=== PATIENT | female | born 1975 | race Two or more races ===

== ENCOUNTER 2020-03-23 14:53 | Emergency (ER) | payer OTHER, SELFPAY ==
--- NOTE | 2020-03-23 15:26 | US_ITS ---
EXAMINATION: US VENOUS ULTRASOUND WITH DOPPLER LOWER EXTREMITY, LEFT CLINICAL INFORMATION: Left calf pain. Recent long travel. Assess for occult DVT. COMPARISON: None TECHNIQUE: Ultrasound of the deep veins is performed from the hip to the calf with compression sonography and color and pulse Doppler assessment. Spectral analysis with color-flow imaging is performed. FINDINGS: There is normal venous compression and respiratory variation and augmented flow. The visualized common femoral vein, superficial femoral vein, profunda femoral vein, popliteal vein, and the trifurcation region shows no evidence of deep venous thrombosis. There is no popliteal fossa cyst demonstrated. IMPRESSION: No DVT demonstrated in the left lower extremity.
[2020-03-23 15:27] VITALS: BP 158/79; PULSE 84; RESP 16; TEMP 37.1; O2SAT 99; BMI 41.8
--- NOTE | 2020-03-23 15:38 | ED_ITS ---
HPI - Extremity Problem General Chief complaint: Extremity Injury, Lower Stated complaint: DVT? Time Seen by Provider: 03/23/20 15:26 Source: patient Mode of arrival: ambulatory Limitations: no limitations History of Present Illness HPI Narrative: Patient presents to ED for left calf pain describes as muscle cramp and spasm that has been occurring for 3 weeks. Patient denies pain as cramping. Patient had recent 3 hour flight before left calf pain began. Patient denies any chest pain, shortness of breath, dizziness, weakness, or coughing up blood. Patient denies working out, long running, recent trauma, or over use. MD Complaint: extremity pain Onset (ago): week(s) (3 weeks) Location: left and lower extremity Related Data Previous Rx's Medication Instructions Recorded cyclobenzaprine 10 mg PO TID PRN #15 tab 03/23/20 naproxen 500 mg PO BID PRN #20 tab 03/23/20 Allergies Allergy/AdvReac Type Severity Reaction Status Date / Time No Known Allergies Allergy Verified 03/23/20 15:31 Review of Systems Review of Systems: Yes all other systems are reviewed and are negative Constitutional: Constitutional: Reports as per HPI and Reports no additional constitutional complaints Eyes: Eyes: Reports as per HPI and Reports no additional eye complaints ENT: Reports system reviewed and no additional complaints, except as documented and Reports as per HPI Cardiovascular: Cardiovascular: Reports as per HPI and Reports no additional cardiovascular complaints Respiratory: Respiratory: Reports as per HPI and Reports no additional respiratory complaints Gastrointestinal: Gastrointestinal: Reports as per HPI and Reports no additional gastrointestinal complaints Musculoskeletal: Musculoskeletal: Reports no additional musculoskeletal complaints and Reports as per HPI Comments: Left calf pain Neurologic: Reports system reviewed and no additional complaints, except as documented and Reports as per HPI Psychiatric: Psychiatric: Reports no additional psychiatric complaints and Reports as per HPI PMF Past Medical History Medical History (Updated 03/23/20 @ 17:17 by MARCOS Mcgarry) Carpal tunnel syndrome Surgical History (Updated 03/23/20 @ 15:30 by Kerry Chan) H/O eye surgery Social History Social History Advance Directives: No Advance Directives Information Provided: No Physical Exam Vital Signs: Vital Signs: Vital Signs Temp Pulse Resp BP Pulse Ox 03/23/20 15:27 98.7 F 84 16 158/79 H 99 Body Mass Index 41.8 Const: General: cooperative, healthy appearing, comfortable, no acute dis tress, well developed, alert and awake Orientation/consciousness: oriented to person, oriented to place, oriented to time and patient oriented x3 HENMT: Head: Yes normal to inspection and Yes No palpable skull fracture present Eyes: General: appearance normal, both eyes and all related structures Neck: Neck: Yes normal visual inspection, Yes full ROM, Yes no lymphadenopathy and Yes no meningeal signs Chest: Chest palpation & inspection: normal inspection of the chest and normal palpation of entire chest wall Resp: Effort & Inspection: normal respiratory effort, able to speak in complete sentences, normal respiratory pattern, no audible wheezes, no cough, no grunting, no nasal flaring, no paradoxical thoraco-abdom movements and no pursed lip breathing Auscultation: clear to auscultation bilaterally, no crackles, no rales, no rhonchi, no wheezes and breath sounds present Cardio: Jugular venous distension: no JVD Heart sounds: S1 normal heart sound present and S2 normal heart sound present GI: Inspection: Yes normal to inspection and No abdominal wall ecchymosis : General: No CVA tenderness and Yes no CVA tenderness Back/Spine/Pelvis: Back: no CVA tenderness, No CVA tenderness and No back tenderness Skin: General skin exam: no rashes or lesions noted Neuro: General: oriented to person, oriented to place, oriented to time, patient oriented x3, gait normal, no meningeal signs and CN's II-XI intact bilaterally Cranial nerves: Yes CN's II-XII intact bilaterally Extrem: Other: left lower extremity negative for any swelling or redness. Positive for calf tenderness on palpation. Pulses are intact in left lower extrmity. leg has normal color. negative for skin tightness or bluish discoloration of toes. General: Yes normal to inspection, Yes full ROM and Yes capillary refill normal Psych: Appearance: grossly normal and well kempt Course Course Course Narrative: Patient will be sent for left leg ultrasound to rule out DVT. no indication for xray of leg. negative for any ecchymosis, deformities, or antrerior bone tenderness. Patient denies any recnent trauma to leg Reevaluation(s) Reevaluation #1: Patient's ultrasound came back negative for blood clot. Patient is comfortable in bed playing on cell phone. Once again history physical exam does not indicate cellulitis, blood clot, or arterial occlusion. Also history physical exam does not indicate rhabdomylosis. Patient did not overuse her leg. Denies long running, denies exercising, and denies overuse of extremity. Also pain is not out of proportion. No need for x-ray. Negative any bone tenderness. Time: 17:14 MDM - Extremity (Nontraumatic) MDM Narrative Medical decision making narrative: Leg muscular pain. Negative for DVT Discharge Plan Discharge Clinical Impression: Leg pain Patient Disposition: Home, Self-Care Instructions: Muscle Spasm (ED), Leg Pain (ED) Additional Instructions: return to the ED for any swelling of extremity, redness, development of red streaks, bluish discoloration of toes, chest pain, shortness of breath, worsening calf pain, severe cramping, numbness,/tingling, or any other concerning symptoms. Please follow-up with the PCP Prescriptions: New naproxen 500 mg tablet 500 mg PO BID PRN (Reason: pain) Qty: 20 RF: 0 cyclobenzaprine 10 mg tablet 10 mg PO TID PRN (Reason: muscle spasm) Qty: 15 RF: 0 Interventions: ED Discharge Assessment Last Done: 03/23/20 17:45 Discharge Date/Time: 03/23/20 17:40 Print Language: [place] Citizen
== END 2020-03-23 17:40 | disposition home or self-care (01) ==
PROVIDERS: Emergency Provider Emergency Medicine
DX: M79.605 Pain in left leg (principal); R60.0 Localized edema; Z79.899 Other long term (current) drug therapy
CPT/HCPCS: 93971; 99283; 99284

== ENCOUNTER → 2022-10-10 08:10 | Outpatient (BNVA) | payer OTHER, SELFPAY | PROVIDERS: PCP Internal Medicine; Referring Provider Internal Medicine; Visit Provider Physician Assistant Surgical ==

== ENCOUNTER → 2022-10-12 08:00 | Outpatient (BNVA) | payer OTHER, SELFPAY | PROVIDERS: PCP Internal Medicine; Visit Provider Surgery ==

== ENCOUNTER 2022-10-18 08:08 | Outpatient (REF) | payer OTHER, SELFPAY ==
[2022-10-18 09:05] LABS: MANUAL DIFF FLAG NO
[2022-10-18 09:15] LABS: Basophils Percent Auto 0.8 % (0-2); Eosinophils Absolute Auto 0.2 X10*3/uL (0.0-0.4); Eosinophils Percent Auto 3.2 % (0-4); Hematocrit 38.9 % (37.0-47.0); Hemoglobin 12.3 g/dl (12.0-16.0); Imm Gran Abs Auto 0.01 X10*3/uL (0.00-0.03); Imm Gran Pct Auto 0.2 % (0.0-0.4); Lymphocytes Absolute Auto 1.7 X10*3/uL (1.2-4.9); Lymphocytes Percent Auto 32.1 % (20-40); Mean Corpuscular HGB Conc 31.6 g/dl (31.0-35.0); Mean Corpuscular Hemoglobin 26.2 pg (27.0-33.0); Mean Corpuscular Volume 82.8 fL (80.0-98.0); Mean Platelet Volume 10.4 fL (9.4-12.3); Monocytes Absolute Auto 0.4 X10*3/uL (0.1-1.2); Monocytes Percent Auto 8.1 % (2-11); Neutrophils Percent Auto 55.6 % (45-73); Platelet Count 293 X10*3/uL (160-400); Red Cell Distribution Width 13.5 % (11.0-16.0); White Blood Count 5.3 X10*3/uL (4.8-10.8)
[2022-10-18 09:38] LABS: Estimated Average Glucose 108 mg/dL; Hemoglobin A1c % 5.4 %
[2022-10-18 10:00] LABS: Alanine Aminotransferase 20 U/L (0-31); Albumin Level 3.9 g/dL (3.5-5.0); Alkaline Phosphatase 85 U/L (39-117); Anion Gap 11 (12-20); Aspartate Amino Transferase 20 U/L (5-31); Bilirubin Total 0.4 mg/dL (0.0-1.0); Blood Urea Nitrogen 9 mg/dL (9-16); C Reactive Protein 0.72 mg/dL (< or = 0.50); Calcium 9.5 mg/dL (8.4-10.2); Carbon Dioxide 28 mmol/L (22-29); Chloride 106 mmol/L (96-108); Cholesterol 199 mg/dL; Estimated Glomerular Filt Rate > 60; Glucose Random 94 mg/dL (60-115); HDL Cholesterol 37 mg/dL; Iron 50 mcg/dL (30-160); LDL Cholesterol Calculated 140 mg/dl; Percent Iron Saturation 18 % (15-50); Potassium 4.5 mmol/L (3.3-5.1); Sodium 140 mmol/L (135-145); Total Iron Binding Capacity 280 mcg/dL (228-428); Total Protein 6.9 g/dL (6.5-8.0); Triglycerides 110 mg/dL; Unsaturated Iron Binding 230 ug/dL
[2022-10-18 10:24] LABS: Ferritin 116 ng/mL (10-250); Folate 16.9 ng/mL (> or = 4.0); Insulin 14 uU/mL (2-29); TSH reflex Free T4 0.63 uIU/mL (0.32-4.0); Vitamin B12 353 pg/mL (200-900); Vitamin D 25-OH Total 29.4 ng/mL (>30)
[2022-10-19 13:14] LABS: Calcium (PTHI) 9.3 mg/dL (8.6-10.2); PTHI 59 pg/mL (16-77)
[2022-10-20 14:53] LABS: H Pylori Breath Test Positive (Negative)
[2022-10-22 17:33] LABS: Zinc 89 mcg/dL (60-130)
[2022-10-23 12:43] LABS: Vitamin B1 13 nmol/L (8-30)
[2022-10-25 03:53] LABS: Vitamin A 35 mcg/dL (38-98)
== END 2022-10-18 08:09 | disposition home or self-care (01) ==
LOC: HO.LAB 08:08
PROVIDERS: PCP Internal Medicine; Visit Provider Surgery
DX: E66.01 Morbid (severe) obesity due to excess calories (principal); K21.9 Gastro-esophageal reflux disease without esophagitis; I10 Essential (primary) hypertension; J45.909 Unspecified asthma, uncomplicated
CPT/HCPCS: 36415; 80053; 80061; 82306; 82607; 82728; 82746; 83013; 83036; 83525; 83540; 83970; 84425; 84443; 84590; 84630; 85025; 86140

== ENCOUNTER 2022-10-20 07:38 | Outpatient (REF) | payer OTHER, SELFPAY ==
--- NOTE | ~2022-10-20 | XR_ITS ---
EXAMINATION: XR CHEST CLINICAL INFORMATION: Obesity COMPARISON: None available. TECHNIQUE: 2 views of the chest were obtained. FINDINGS: No significant abnormality is noted involving the heart, lungs, mediastinum, bony thorax or soft tissues. XR/XR chest 2V IMPRESSION: Unremarkable examination.
--- NOTE | 2022-10-20 08:15 | ECG_ITS ---
Test Reason : e66.1 Blood Pressure : / mmHG Vent. Rate : 069 BPM Atrial Rate : 069 BPM P-R Int : 140 ms QRS Dur : 086 ms QT Int : 408 ms P-R-T Axes : 046 052 048 degrees QTc Int : 437 ms Normal sinus rhythm Normal ECG No previous ECGs available Referred By: Gaston Cooper Electronically Signed By:Silverio Brooks
== END 2022-10-20 07:39 | disposition home or self-care (01) ==
LOC: HO.XRAY 07:38
PROVIDERS: Visit Provider Surgery
DX: E66.01 Morbid (severe) obesity due to excess calories (principal); I10 Essential (primary) hypertension; J45.909 Unspecified asthma, uncomplicated; K21.9 Gastro-esophageal reflux disease without esophagitis
CPT/HCPCS: 71046; 93005

== ENCOUNTER → 2022-11-07 07:59 | Outpatient (BNVA) | payer OTHER, SELFPAY | PROVIDERS: PCP Internal Medicine; Visit Provider Surgery ==

== ENCOUNTER → 2022-11-21 10:58 | Outpatient (BNVA) | payer OTHER, SELFPAY | PROVIDERS: PCP Internal Medicine; Visit Provider Physician Assistant Surgical ==

== ENCOUNTER 2022-11-21 17:43 | Outpatient (REF) | payer OTHER, SELFPAY ==
[2022-11-22 13:06] LABS: H Pylori Breath Test Negative (Negative)
== END 2022-11-21 17:44 | disposition home or self-care (01) ==
LOC: HO.LNP 17:43
PROVIDERS: Visit Provider Physician Assistant Surgical
DX: Z12.2 Encounter for screening for malignant neoplasm of respiratory organs (principal)
CPT/HCPCS: 83013

== ENCOUNTER → 2022-11-22 09:18 | Outpatient (BNVA) | payer OTHER, SELFPAY | PROVIDERS: PCP Internal Medicine; Visit Provider Dietitian, Registered | DX: E66.01 Morbid (severe) obesity due to excess calories (principal) | CPT/HCPCS: 97802 ==

== ENCOUNTER 2022-12-16 10:04 | Outpatient (AMB) | payer OTHER, SELFPAY ==
--- NOTE | 2022-12-16 09:31 | MHC.OFFVISWM ---
Intake VS Expanded 12/16/22 09:33 Height 5 ft 3 in Weight 215 lb 3.2 oz BMI 38.1 Intake Visit Reasons: VIDEO F/U [facility] Yardage Control Operator Required: No Allergies No Known Allergies Allergy (Verified 10/12/22 09:11) Medication List - Last Reconciled 12/16/22 by MARCOS De albuterol sulfate 90 mcg/actuation 2 puffs inhalation Q6H PRN hydrochlorothiazide 12.5 mg PO DAILY mecobalamin (vitamin B12) 500 mcg orally one per day; omeprazole 20 mg PO DAILY vitamin A palmitate 10,000 units orally one per day; HPI HPI Comments History of Present Illness Details 47 yo female returns for [facility] clinic Initial weight on 10/12/22 was 232.8 with a BMI of 41.2 Weight today 215.2 with a BMI of 38.1 weight loss 17.6 TBWL% 7.5 She states she is doing two shakes, 2 bars and a meal. The shakes and bars are throughout the day. Each shake is 1/2 scoop, 2 ZP bars per day and meal 8 forks/4 veg/4 rice or pasta Meal plan: 2 Isopure INFUSIONS protein shakes (HALF scoop EACH in 8oz cold water) 2 ZP protein bars and meal with 8 forks protein and 4 forks veg, 4 forks carbs. Not following a specific schedule but drinkg and eating slowly throughout the day Exercise plan: 30 min treadmill, speed 3 incline 2-12, goal 300 calories, 6-7 days per week walking dog daily [facility] Medical History Asthma Carpal tunnel syndrome GERD (gastroesophageal reflux disease) Hypertension Morbid obesity Surgical History H/O eye surgery Hx of carpal tunnel repair Hx of tubal ligation Family History Father Hypertension FH: prostate cancer Mother Hypertension Breast cancer Raynaud disease Amputee, below knee Sister Hypertension Social History Alcohol intake: current Alcohol intake frequency: holidays/special occasions only Patient Tobacco Use Status: Never used Tobacco Physical Exam Vital Signs: BMI result Body Mass Index 38.1 Assessment & Plan Assessment & Plan (1) Obesity (BMI 30-39.9): Code(s): E66.9 - Obesity, unspecified Plan: change meal plan to 2 isopure shakes 1/2 scoop each 1.5 ZP bars Meal 8 forks protein/8 forks veg, remove carbs Encouraged to continue exercise and try to push to incline of 13 and then 14 as she is able. Strive for more than 300 nataly if possible. Reminded of upcoming appts (2) H. pylori infection: Code(s): A04.8 - Other specified bacterial intestinal infections Plan: re-teat after treatment 11/21/22-neg Telehealth Telehealth Location of provider rendering services: practice address Location of patient: address on file Patient Identification confirmed using: Name, : Yes Telehealth method: video Patient verbally consented to treatment: Yes Patient verbally consented to billing insurance company: Yes Patient informed of any privacy concerns related to visit: Yes Minutes spent on Phone/Video with Pt.: 20 Coding Level of Care Code Tele Est Pt Level 3 (35256) Diagnoses Obesity (BMI 30-39.9) E66.9 H. pylori infection A04.8 Time Spent (min) 20
[2022-12-16 09:33] VITALS: BMI 38.1
== END 2022-12-16 10:05 | disposition home or self-care (01) ==
LOC: HO.HBS 10:04
PROVIDERS: PCP Internal Medicine; Visit Provider Physician Assistant Surgical
DX: E66.9 Obesity, unspecified (principal); Z68.38 Body mass index [BMI] 38.0-38.9, adult; A04.8 Other specified bacterial intestinal infections
CPT/HCPCS: 99213

== ENCOUNTER → 2022-12-16 10:04 | Outpatient (BNVA) | payer OTHER, SELFPAY | PROVIDERS: PCP Internal Medicine; Visit Provider Physician Assistant Surgical ==

== ENCOUNTER 2022-12-20 08:01 | Outpatient (REF) | payer OTHER, SELFPAY ==
--- NOTE | ~2022-12-20 | US_ITS ---
EXAMINATION: US COMPLETE ABDOMEN WITH LIVER ELASTOGRAPHY CLINICAL INFORMATION: Obesity. COMPARISON: None available. TECHNIQUE: Real-time imaging of the abdominal viscera. Noninvasive ultrasound liver fibrosis assessment is performed using Karolyn ElastPQ point quantification shear wave elastography (2D-SWE) with a C5-2 MHz transducer. Multiple elastography samples are obtained. FINDINGS: PANCREAS: Normal. The visualized pancreatic head and body are normal in appearance. The remainder of the pancreas is obscured from visualization by the overlying bowel gas. ABDOMINAL AORTA: The proximal, middle, and distal aortic segments are normal in caliber. INFERIOR VENA CAVA: Visualized portions are normal. LIVER: There is mild hepatomegaly. The liver is normal in contour and generally increased in echogenicity. No focal lesion or intrahepatic biliary duct dilatation. The right lobe measures 17.7 cm in length. The left lobe measures 10.6 cm in length. Portal flow is towards the liver (hepatopetal). Shear wave liver elastography median stiffness is 1.25 m/s (reference: normal median stiffness is 1.3 m/s or less). IQR/median stiffness to assess sampling precision is 0.08 (reference: good quality data set is IQR/median stiffness of 0.15 or less). GALLBLADDER: Normal. The gallbladder is physiologically distended without evidence of stones, sludge, polyps, wall thickening or pericholecystic fluid. COMMON BILE DUCT: Normal in caliber measuring 0.5 cm in diameter. RIGHT KIDNEY: Normal. No hydronephrosis. No renal calculi or focal parenchymal lesions. The kidney measures 10.9 cm in maximum dimension. LEFT KIDNEY: Normal. No hydronephrosis. No renal calculi or focal parenchymal lesions. The kidney measures 12.4 cm in maximum dimension. SPLEEN: Normal. The spleen measures 9.4 cm in maximum dimension. FREE FLUID: None. US/US abdomen comp w elastography IMPRESSION: 1. There is mild hepatomegaly. 2. There is generalized increase in hepatic echotexture, consistent with fatty infiltration or hepatocellular disease. Please correlate clinically. No focal hepatic mass or intrahepatic biliary dilatation is seen. 3. Liver elastography: Measurements are consistent with a high probability of normal liver stiffness. REFERENCE: Society of Radiologists in Ultrasound Liver Stiffness Thresholds (2020): LIVER STIFFNESS THRESHOLDS: *Liver Stiffness equal or less than 1.3 m/s: High probability of being normal. *Liver Stiffness less than 1.7 m/s: In the absence of other known clinical signs, rules out compensated advanced chronic liver disease. *Liver Stiffness 1.7-2.1 m/s: Suggestive of compensated advanced chronic liver disease but need further test for confirmation. *Liver Stiffness over 2.1 m/s: Rules in compensated advanced chronic liver disease. *Liver Stiffness over 2.4 m/s: Suggestive of clinically significant portal hypertension. QUALITY OF DATA SET: *IQR/Median value equal or less than 0.15 implies a quality data set. *IQR/Median value over 0.15 implies a poor quality data set. SIGNIFICANT CHANGE FROM PRIOR EXAM: Significant change if liver stiffness measurement is 10% or greater from prior exam. OTHER CONSIDERATIONS: The stage of liver fibrosis may be overestimated in the setting of acute hepatitis, liver inflammation, elevated liver function tests, hepatic vascular congestion, obstructive cholestasis, non-fasting state, and infiltrative diseases such as amyloidosis and lymphoma. In some patients with NAFLD, the liver stiffness thresholds for compensated advanced chronic liver disease may be lower. In causes other than viral hepatitis and NAFLD, liver stiffness thresholds are not well established.
== END 2022-12-20 08:02 | disposition home or self-care (01) ==
LOC: HO.US 08:01
PROVIDERS: PCP Internal Medicine; Visit Provider Surgery
DX: E66.01 Morbid (severe) obesity due to excess calories (principal); I10 Essential (primary) hypertension; K21.9 Gastro-esophageal reflux disease without esophagitis; J45.909 Unspecified asthma, uncomplicated
CPT/HCPCS: 76705; 76981

== ENCOUNTER 2022-12-22 09:15 | Outpatient (AMB) | payer OTHER, SELFPAY ==
--- NOTE | 2022-12-22 09:22 | A.OFFVIS_ITS ---
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 Talked about the mental barriers struggles she has with eliminating food from her diet. She has also cut carbs out of her diet which has been a major struggle as well. SW online class: completed , reviewed, had questions which were answered today. Dietary counseling reduction Diagnosis Nutrition problem #1 overweight/obesity As related to (etiology) #1 excess energy intake and physical inactivity As evidenced by (sign/symptom) #1 high BMI Monitoring/Goals Nutrition problem monitoring total energy intake, level of knowledge/skill, total PRO intake, total CHO intake and weight Outcome progress progressing Learning/Education Readiness to learn good Stages of change action Most Recent Diabetes Results: No Data to Display [facility] Medical History Asthma Carpal tunnel syndrome GERD (gastroesophageal reflux disease) Hypertension Morbid obesity Surgical History H/O eye surgery Hx of carpal tunnel repair Hx of tubal ligation Family History Father Hypertension FH: prostate cancer Mother Hypertension Breast cancer Raynaud disease Amputee, below knee Sister Hypertension Social History Alcohol intake: current Alcohol intake frequency: holidays/special occasions only Patient Tobacco Use Status: Never used Tobacco Assessment & Plan Assessment & Plan (1) Obesity (BMI 30-39.9): Code(s): E66.9 - Obesity, unspecified Patient Instructions: Patient is cleared from a nutrition standpoint for bariatric surgery. Educational requirements have been completed. Reviewed vitamin supplementation and commitment to protein shake for several months post surgery. Encouraged communication with office as needed Telehealth Telehealth Location of provider rendering services: practice address Location of patient: address on file Patient Identification confirmed using: Name, : Yes Telehealth method: video Patient verbally consented to treatment: Yes Patient verbally consented to billing insurance company: Yes Patient informed of any privacy concerns related to visit: Yes Minutes spent on Phone/Video with Pt.: 20 Coding Level of Care Code Nutr Indiv Subseq (47519) Diagnoses Obesity (BMI 30-39.9) E66.9 Time Spent (min) 20
[2022-12-22 09:39] VITALS: BMI 38.1
== END 2022-12-22 09:54 | disposition home or self-care (01) ==
LOC: HO.HBS 09:50
PROVIDERS: PCP Internal Medicine; Visit Provider Dietitian, Registered
DX: E66.9 Obesity, unspecified (principal)

== ENCOUNTER → 2022-12-22 09:15 | Outpatient (BNVA) | payer OTHER, SELFPAY | PROVIDERS: PCP Internal Medicine; Visit Provider Dietitian, Registered | DX: E66.9 Obesity, unspecified (principal); Z68.38 Body mass index [BMI] 38.0-38.9, adult; Z71.3 Dietary counseling and surveillance | CPT/HCPCS: 97803 ==

== ENCOUNTER 2023-01-09 07:47 | Outpatient (AMB) | payer OTHER, SELFPAY ==
--- NOTE | 2023-01-09 08:41 | MHC.OFFVISWM ---
Intake VS Expanded 01/09/23 08:46 Height 5 ft 3 in Weight 209 lb 8 oz BMI 37.1 Body Fat 81.1 Body Fat Percentage 38.7 Free Fat Mass 128.6 Visceral Mass 19 Water Mass 92.7 BMR 1,629 Intake Visit Reasons: TV Follow Up SWL Allergies No Known Allergies Allergy (Verified 10/12/22 09:11) HPI TV Follow Up SW[facility] HPI Details Start time: 8.33am, End time: 8.53am ?I spent 15 minutes speaking with the patient on the phone plus an additional 5 minutes reviewing and updating records for a total of 20 minutes HPI Comments History of Present Illness Details Overall weight loss: 23lbs, or 9.88% TBWL Is doing 2 Isopure protein shakes (1/2 scoop in water), 2 Zone Perfect protein bars and one meal (8 forks of protein and 8 forks of salad or vegetables) Exercise: is doing treadmill for 300 calories daily PFSH Medical History Asthma Carpal tunnel syndrome GERD (gastroesophageal reflux disease) Hypertension Morbid obesity Surgical History H/O eye surgery Hx of carpal tunnel repair Hx of tubal ligation Family History Father Hypertension FH: prostate cancer Mother Hypertension Breast cancer Raynaud disease Amputee, below knee Sister Hypertension Social History Alcohol intake: current Alcohol intake frequency: holidays/special occasions only Patient Tobacco Use Status: Never used Tobacco Assessment & Plan Assessment & Plan (1) Obesity: Code(s): E66.9 - Obesity, unspecified Plan: 1. Plan for lap sleeve gastrectomy including upper GI endoscopy. All tests has been completed and reviewed and the patient is cleared for the surgery. ?If diaphragmatic or ventral hernias are present at time of surgery, these will be repaired laparoscopically as well. Risks and complications were discussed in detail including possible conversion to an open procedure, anastomotic leak, bleeding requiring transfusion, small bowel obstruction, , DVT and pulmonary embolism, cardiac, or pulmonary complications, as custodial complications such as anastomotic ulcer, insufficient weight loss and vitamin deficiencies. I emphasized the importance of close follow-up, adherence to instructions and good communication. So far she has proven to be an excellent communicator and very compliant with all our directions accomplishing a great weight loss. I believe that she is an excellent candidate and she is ready. 2. Continue same nutritional plan of 2 Isopure protein shakes (1/2 scoop in water), 2 Zone Perfect protein bars and one meal (8 forks of protein and 8 forks of salad or vegetables). May replace up to 4 forks of salad with 4 forks of rice, potatoes, or rice or fruits 3. Exercise: continue treadmill or stationary bike for 300 calories daily. Goal is to do 2000 calories per week 4. Continue to send me weight measurements weekly on Wednesdays (2) BMI 37.0-37.9, adult: Code(s): Z68.37 - Body mass index [BMI] 37.0-37.9, adult Telehealth Telehealth Location of provider rendering services: practice address Location of patient: address on file Patient Identification confirmed using: Name, : Yes Telehealth method: voice only Patient verbally consented to treatment: Yes Patient verbally consented to billing insurance company: Yes Patient informed of any privacy concerns related to visit: Yes Minutes spent on Phone/Video with Pt.: 20 Coding Level of Care Code Tele Est Pt Level 3 (62556) Diagnoses Obesity E66.9 BMI 37.0-37.9, adult Z68.37 Time Spent (min) 20
[2023-01-09 08:46] VITALS: BMI 37.1
== END 2023-01-09 08:53 | disposition home or self-care (01) ==
LOC: HO.HBS 07:47
PROVIDERS: PCP Internal Medicine; Visit Provider Surgery
DX: E66.9 Obesity, unspecified (principal); Z68.37 Body mass index [BMI] 37.0-37.9, adult
CPT/HCPCS: 99213

== ENCOUNTER → 2023-01-09 07:47 | Outpatient (BNVA) | payer OTHER, SELFPAY | PROVIDERS: PCP Internal Medicine; Visit Provider Surgery ==

== ENCOUNTER 2023-01-09 07:59 | Emergency (ER) | payer OTHER, SELFPAY ==
--- NOTE | ~2023-01-09 | CT_ITS ---
EXAMINATION: CT ABDOMEN AND PELVIS WITH CONTRAST CLINICAL INFORMATION: Right flank pain. COMPARISON: Ultrasound abdomen dated 12/20/2022. TECHNIQUE: Multidetector volumetric images were obtained from the superior aspect of the liver through the pubic symphysis following administration 85 mL of Omnipaque 350 intravenous contrast. Sagittal and coronal reformatted images were obtained on the technologist's workstation. Oral contrast: No This CT examination was performed using dose optimization techniques as appropriate, variously including the following: *Automated exposure control *Adjustment of mA and/or kV according to patient size (this includes techniques or standardized protocols for targeted exams where dose is matched to indication/reason for exam; i.e. extremities or head) *Use of iterative reconstruction technique DLP: 914 mGy-cm FINDINGS: LUNG BASES: The visualized lung bases are unremarkable. LIVER, GALLBLADDER, AND BILIARY TREE: Unremarkable. PANCREAS: Unremarkable. SPLEEN: Unremarkable. ADRENAL GLANDS: Unremarkable. KIDNEYS AND URETERS: Mild right hydronephrosis caused by a 0.6 cm calculus in the proximal one third of the right ureter (image 36, series 7). The distal right ureter is unremarkable. The left kidney and ureter are unremarkable. BLADDER: Unremarkable. GASTROINTESTINAL TRACT: The stomach, small bowel and appendix are unremarkable. The colon shows mild diverticulosis distally without surrounding abnormality. The rectum is unremarkable. ABDOMINAL WALL: Very small fat-containing umbilical hernia. LYMPH NODES: No lymphadenopathy. VASCULAR: Unremarkable. PELVIC VISCERA: Unremarkable. OSSEOUS STRUCTURES: Unremarkable. CT/CT abdomen pelvis w IV con IMPRESSION: 1. Mild right hydronephrosis caused by a 0.6 cm calculus in the proximal one third of the right ureter. 2. Mild distal colonic diverticulosis without evidence for acute diverticulitis.
[2023-01-09 08:00] VITALS: BP 155/74; PULSE 77; RESP 16; TEMP 36.1; O2SAT 99; BMI 37.2
--- NOTE | 2023-01-09 08:49 | ED.FEMALEGU ---
HPI - Female Genitourinary General Chief complaint: Urogenital-Female Stated complaint: R flank pain/vomiting Time Seen by Provider: 01/09/23 08:29 Source: patient Mode of arrival: ambulatory Limitations: no limitations History of Present Illness HPI Narrative: Patient is a 47-year-old female with history asthma, GERD, HTN presenting to the emergency department with complaint of acute onset right flank pain with associated nausea and vomiting since this morning. Denies fevers. Reports dark urine. History of kidney stone as a teenager, unsure if this feels the same. Denies any chest pain or shortness of breath. Denies concern for STIs. MD elicited complaint: flank pain Pertinent past history: other (kidney stones) Onset (ago): hour(s) Location of symptoms: flank (right) Severity: severe Female Urogenital Radiation: LRQ Severity scale (1-10): 10 Quality of pain: sharp Consistency: constant Vaginal discharge: none Vaginal bleeding: none Urinary symptoms: Hematuria ( dark urine) and Flank Pain Exacerbating factors: palpation Relieving factors: none Associated symptoms: nausea and vomiting Treatment prior to arrival: none Sexual activity: Yes Patient : No Related Data Home Medications Medication Instructions Recorded Confirmed albuterol sulfate 90 mcg/actuation 2 puff inhalation Q6H PRN 10/10/22 12/16/22 aerosol inhaler hydrochlorothiazide 12.5 mg tablet 12.5 mg PO DAILY 10/10/22 12/16/22 omeprazole 20 mg capsule,delayed 20 mg PO DAILY 10/12/22 12/16/22 release Previous Rx's Medication Instructions Recorded mecobalamin (vitamin B12) 500 mcg 500 mcg PO .COMPLEX #30 tabs 10/19/22 chewable tablet vitamin A palmitate 3,000 mcg 10,000 unit PO .COMPLEX #30 caps 10/26/22 (10,000 unit) capsule ondansetron 4 mg disintegrating 4 mg PO Q8H PRN nausea and 01/09/23 tablet vomiting #14 tabs oxycodone 5 mg tablet 5 mg PO Q8H PRN pain #8 tabs 01/09/23 prednisone 20 mg tablet 20 mg PO DAILY #4 tabs 01/09/23 tamsulosin 0.4 mg capsule 0.4 mg PO DAILY #6 caps 01/09/23 Allergies Allergy/AdvReac Type Severity Reaction Status Date / Time No Known Allergies Allergy Verified 10/12/22 09:11 Review of Systems Review of Systems: As per HPI. Yes all other systems are reviewed and are negative Constitutional: Constitutional: Reports as per HPI [facility] Past Medical History Medical History Asthma Carpal tunnel syndrome GERD (gastroesophageal reflux disease) Hypertension Morbid obesity Surgical History H/O eye surgery Hx of carpal tunnel repair Hx of tubal ligation Family History Family History Father Hypertension FH: prostate cancer Mother Hypertension Breast cancer Raynaud disease Amputee, below knee Sister Hypertension Social History Social History Alcohol intake: never Patient Tobacco Use Status: Never used Tobacco Smoked in Last 30 Days: No Use of substances other than those prescribed or required for medical reasons: No Advance Directives: No Advance Directives Information Provided: No Patient : No Physical Exam Vital Signs: Vital Signs: Last Vital Signs Temp 98.2 F 01/09/23 11:35 Pulse 65 01/09/23 11:35 Resp 14 01/09/23 11:35 BP 129/75 01/09/23 11:35 Pulse Ox 98 01/09/23 11:35 O2 Del Method Room Air 01/09/23 11:35 BMI result Body Mass Index 37.2 Vital signs have been reviewed and appear to be correct. Blood pressure elevated, likely secondary to pain. Heart rate normal. Respiratory rate normal. Temperature normal. Oxygen saturation normal. Const: General: cooperative, healthy appearing and no acute distress Orientation/consciousness: oriented to person, oriented to place, oriented to time and patient oriented x3 Limitations: no limitations HEENT: Head: Yes normocephalic and Yes atraumatic Ears: external ears normal General nose exam: Normal external nose present Face and sinus: Yes face symmetric Mouth: oropharynx normal and moist mucous membranes Throat: Yes uvula midline Eyes: Pupils: Equal, round and reactive pupils present Neck: Neck: Yes normal visual inspection and Yes supple Resp: Effort & Inspection: normal respiratory effort and able to speak in complete sentences Auscultation: clear to auscultation bilaterally Cardio: Rate: regular rate Rhythm: regular rhythm Heart sounds: S1 normal heart sound present and S2 normal heart sound present GI: Palpation (GI): Soft to palpation and nontender Auscultation: normoactive bowel sounds : General: Yes CVA tenderness on the right Back/Spine/Pelvis: Back: CVA tenderness Skin: General skin exam: elasticity normal and turgor normal Neuro: General: oriented to person, oriented to place, oriented to time, patient oriented x3, moves all extremities, no focal motor deficits and CN's II-XI intact bilaterally Cranial nerves: Yes Equal, round and reactive pupils present Cognition (Neuro): normal cognition Extrem: General: Yes full ROM, Yes no pedal edema and Yes no calf tenderness Psych: Mental Status: mental status grossly normal Affect: normal affect Thought process: Normal thought process present Medications Administered Discontinued Medications Generic Name Dose Route Start Last Admin Trade Name Freq PRN Reason Stop Dose Admin Sodium Chloride 1,000 mls @ 999 mls/hr 01/09/23 09:00 01/09/23 10:20 Ns IV 01/09/23 10:00 Infused .Q1H1M EVELIA Infusion Iohexol 100 ml 01/09/23 10:12 01/09/23 10:12 Iohexol 350 Mg/Ml 100 Ml Infus..Btl IV 01/09/23 10:13 85 ml ONCE ONE Administration Morphine Sulfate 4 mg 01/09/23 08:47 01/09/23 09:17 Morphine Sulfate 4 Mg/Ml Cartridge IVPUSH 01/09/23 08:48 4 mg ONCE ONE Administration Protocol Ondansetron HCl 4 mg 01/09/23 08:47 01/09/23 09:17 Ondansetron Hcl 4 Mg/2 Ml Vial IVPUSH 01/09/23 08:48 4 mg ONCE ONE Administration Medical Decision Making Medical Decision Making [facility] Narrative: Patient is a 47-year-old female with history asthma, GERD, HTN presenting to the emergency department with complaint of acute onset right flank pain with associated nausea and vomiting since this morning. On exam patient is awake, A+Ox3, standing in exam room, appears very uncomfortable, BP mildly elevated likely secondary to pain, VS otherwise WNL, afebrile, normal neurological exam without focal deficits, abdomen soft and nontender, + right CVA tenderness. Given reported symptoms and physical exam findings, initial differential includes renal colic/calculi, UTI, pyelonephritis. Do not suspect sepsis. Will medicate for pain and nausea, order IV fluids, obtain CT to assess for calculi/hydronephrosis. Labs notable for no leukocytosis,no KAROL, 3+ blood and >20RBCs on UA. CT notable for 6mm calculi with mild right hydronephrosis. My interpretation is in agreement with the radiologist's interpretation. Spoke with Dr. Stephens who feels patient is stable for discharge home with pain control and he will see her in the office outpatient. Patient is agreeable with this plan. Will discharge home with PO oxycodone and prednisone. Medicated with tamsulosin and solu-medrol in ED. Differential Diagnosis Differential Diagnoses: The differential diagnosis associated with the presentation includes As per MDM. Admission/Observation Consideration of admission/observation: Escalation of care including admission/observation considered Consult Healthcare Provider Management of the patient was discussed with: Block Bolter Mule Operator (Dr. Stephens-urology) Lab Data [facility] Lab Attestation statement: I reviewed the patient's lab results. As per MDM. 01/09/23 09:07 01/09/23 09:07 Labs: Lab Results 01/09/23 01/09/23 01/09/23 Range/Units 09:07 09:07 09:07 WBC 6.3 (4.8-10.8) X10*3/uL RBC 4.77 (4.20-5.50) X10*6/uL Hgb 12.5 (12.0-16.0) g/dl Hct 39.0 (37.0-47.0) % MCV 81.8 (80.0-98.0) fL MCH 26.2 L (27.0-33.0) pg MCHC 32.1 (31.0-35.0) g/dl RDW 13.3 (11.0-16.0) % Plt Count 279 (160-400) X10*3/uL MPV 10.6 (9.4-12.3) fL Immature Gran % (Auto) 0.3 (0.0-0.4) % Neut % (Auto) 66.8 (45-73) % Lymph % (Auto) 23.5 (20-40) % [place] % (Auto) 6.4 (2-11) % Eos % (Auto) 2.4 (0-4) % Baso % (Auto) 0.6 (0-2) % Lymph # (Auto) 1.5 (1.2-4.9) X10*3/uL [place] # (Auto) 0.4 (0.1-1.2) X10*3/uL Eos # (Auto) 0.2 (0.0-0.4) X10*3/uL Baso # (Auto) 0.0 (0.0-0.2) X10*3/uL Abs Immat Gran (auto) 0.02 (0.00-0.03) X10*3/uL Absolute Neuts (auto) 4.2 (2.0-8.3) x10*3/uL Absolute Nucleated RBC 0.000 (0.0-0.012) X10*3/uL Nucleated RBC % (auto) 0.0 (0.0-0.2) /100WBC Sodium 140 (135-145) mmol/L Potassium 3.6 (3.3-5.1) mmol/L Chloride 105 (96-108) mmol/L Carbon Dioxide 25 (22-29) mmol/L Anion Gap 14 (12-20) BUN 12 (9-16) mg/dL Creatinine 0.72 (0.5-1.4) mg/dL Estim Creat Clear Calc 103.7 Estimated GFR > 60 Random Glucose 105 (60-115) mg/dL Calcium 9.5 (8.4-10.2) mg/dL Total Bilirubin 0.3 (0.0-1.0) mg/dL AST 19 (5-31) U/L ALT 18 (0-31) U/L Alkaline Phosphatase 114 (39-117) U/L Total Protein 7.8 (6.5-8.0) g/dL Albumin 4.0 (3.5-5.0) g/dL Beta HCG, Quant 6 mIU/mL Urine Color Urine Appearance Urine pH (5.0-9.0) Ur Specific [place] (1.005-1.025) Urine Protein (Neg-Trace) mg/dL Urine Glucose (UA) (Negative) mg/dL Urine Ketones (Negative) mg/dL Urine Blood (Negative) Urine Nitrite (Negative) Ur Leukocyte Esterase (Negative) Urine RBC (0-2) /HPF Urine WBC (0-5) /HPF Ur Squamous Epith Cells (0-2) /HPF Urine Bacteria (None Seen) Hyaline Casts (0-2) /LPF 01/09/23 Range/Units 10:41 WBC (4.8-10.8) X10*3/uL RBC (4.20-5.50) X10*6/uL Hgb (12.0-16.0) g/dl Hct (37.0-47.0) % MCV (80.0-98.0) fL MCH (27.0-33.0) pg MCHC (31.0-35.0) g/dl RDW (11.0-16.0) % Plt Count (160-400) X10*3/uL MPV (9.4-12.3) fL Immature Gran % (Auto) (0.0-0.4) % Neut % (Auto) (45-73) % Lymph % (Auto) (20-40) % [place] % (Auto) (2-11) % Eos % (Auto) (0-4) % Baso % (Auto) (0-2) % Lymph # (Auto) (1.2-4.9) X10*3/uL [place] # (Auto) (0.1-1.2) X10*3/uL Eos # (Auto) (0.0-0.4) X10*3/uL Baso # (Auto) (0.0-0.2) X10*3/uL Abs Immat Gran (auto) (0.00-0.03) X10*3/uL Absolute Neuts (auto) (2.0-8.3) x10*3/uL Absolute Nucleated RBC (0.0-0.012) X10*3/uL Nucleated RBC % (auto) (0.0-0.2) /100WBC Sodium (135-145) mmol/L Potassium (3.3-5.1) mmol/L Chloride (96-108) mmol/L Carbon Dioxide (22-29) mmol/L Anion Gap (12-20) BUN (9-16) mg/dL Creatinine (0.5-1.4) mg/dL Estim Creat Clear Calc Estimated GFR Random Glucose (60-115) mg/dL Calcium (8.4-10.2) mg/dL Total Bilirubin (0.0-1.0) mg/dL AST (5-31) U/L ALT (0-31) U/L Alkaline Phosphatase (39-117) U/L Total Protein (6.5-8.0) g/dL Albumin (3.5-5.0) g/dL Beta HCG, Quant mIU/mL Urine Color Yellow Urine Appearance Cloudy Urine pH 5.5 (5.0-9.0) Ur Specific [place] 1.020 (1.005-1.025) Urine Protein 30 (1+) H (Neg-Trace) mg/dL Urine Glucose (UA) Negative (Negative) mg/dL Urine Ketones Negative (Negative) mg/dL Urine Blood Large (3+) H (Negative) Urine Nitrite Negative (Negative) Ur Leukocyte Esterase Negative (Negative) Urine RBC >20 H (0-2) /HPF Urine WBC 0-5 (0-5) /HPF Ur Squamous Epith Cells 0-2 (0-2) /HPF Urine Bacteria None Seen (None Seen) Hyaline Casts 0-2 (0-2) /LPF Independent Interpretation I performed an independent interpretation of an: CT Scan Interpretation: 6mm calculi to right ureter with mild right hydronephrosis Radiology Impression Discussion of test interpretation with radiology: I have reviewed the radiologist's reading. Radiologist Impression: CT/CT abdomen pelvis w IV con IMPRESSION: 1.? Mild right hydronephrosis caused by a 0.6 cm calculus in the proximal one third of the right ureter. 2.? Mild distal colonic diverticulosis without evidence for acute diverticulitis. ? External Record Review External record reviewed: Inpatient record, Office record and Outpatient record Prescription Management I considered prescription management with: Pain Medication and Other Chronic Conditions Patient?s care impacted by: Hypertension Discharge Plan Discharge Clinical Impression: Calculus of right ureter Patient Disposition: Home, Self-Care Instructions: Low Oxalate Diet (ED), How to Strain Your Urine (ED), Hydronephrosis (ED), Ureteral Stones (ED) Additional Instructions: You were evaluated in the emergency department for right flank pain. Your CT scan showed a 6 mm stone in your right ureter. We recommend you take 600 mg ibuprofen every 6 hours or Tylenol 650 mg every 6 hours as needed for pain. If needed, you can alternate these medications so that you take 1 medication every 3 hours. For instance, at noon take ibuprofen, then at 3:00 p.m. take Tylenol, then at 6:00 p.m. take ibuprofen. You are also being prescribed oxycodone for severe pain which you may use every 8 hours. You are being prescribed Zofran which you may use every 8 hours as needed for nausea. You are also being prescribed prednisone which is a steroid to decrease inflammation. You received a dose of steroids today in the emergency department, please begin this prescription tomorrow. You are being referred to Urology for further management, please contact them for a follow-up appointment [place]. Return to the emergency department if you experience worsening pain, fever, painful urination, blood in your urine, weakness, chest pain, difficulty breathing, or any other concerning symptoms. Prescriptions: New ondansetron 4 mg tablet,disintegrating 4 mg PO Q8H PRN (Reason: nausea and vomiting) Qty: 14 0RF prednisone 20 mg tablet 20 mg PO DAILY Qty: 4 0RF Rx Instructions: You were given the first dose in the emergency department. Please start this tomorrow, 01/10/23. tamsulosin 0.4 mg capsule 0.4 mg PO DAILY Qty: 6 0RF Rx Instructions: You were given the first dose today in the emergency department, please start tomorrow 01/10/23. oxycodone 5 mg tablet 5 mg PO Q8H PRN (Reason: pain) Qty: 8 0RF Rx Instructions: Partial Fill upon patient request. No Action mecobalamin (vitamin B12) 500 mcg tablet,chewable 500 mcg PO .COMPLEX Qty: 30 2RF Rx Instructions: 500 mcg orally one per day; vitamin A palmitate 3,000 mcg (10,000 unit) capsule 10,000 unit PO .COMPLEX Qty: 30 1RF Rx Instructions: 10,000 units orally one per day; hydrochlorothiazide 12.5 mg tablet 12.5 mg PO DAILY albuterol sulfate 90 mcg/actuation HFA aerosol inhaler 2 puff inhalation Q6H PRN omeprazole 20 mg capsule,delayed release(DR/EC) 20 mg PO DAILY Referrals: [facility] [Provider Group]
[2023-01-09 08:50] VITALS: BP 133/65; PULSE 74; RESP 18; TEMP 36.9; O2SAT 99
--- NOTE | 2023-01-09 09:09 | PC.NURSE ---
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 pt has hematuria and difficulty urinating but denies dysuria. pt has accompanying nausea and vomiting but denies diarrhea or having a fever recently. 20g IV placed in the left AC w/o complications. labs drawn and sent to lab.
[2023-01-09 09:15] LABS: MANUAL DIFF FLAG NO
[2023-01-09 09:17] LABS: Basophils Percent Auto 0.6 % (0-2); Eosinophils Absolute Auto 0.2 X10*3/uL (0.0-0.4); Eosinophils Percent Auto 2.4 % (0-4); Hemoglobin 12.5 g/dl (12.0-16.0); Imm Gran Abs Auto 0.02 X10*3/uL (0.00-0.03); Imm Gran Pct Auto 0.3 % (0.0-0.4); Lymphocytes Absolute Auto 1.5 X10*3/uL (1.2-4.9); Lymphocytes Percent Auto 23.5 % (20-40); Mean Corpuscular HGB Conc 32.1 g/dl (31.0-35.0); Mean Corpuscular Hemoglobin 26.2 pg (27.0-33.0); Mean Corpuscular Volume 81.8 fL (80.0-98.0); Mean Platelet Volume 10.6 fL (9.4-12.3); Monocytes Absolute Auto 0.4 X10*3/uL (0.1-1.2); Monocytes Percent Auto 6.4 % (2-11); Neutrophils Absolute Auto 4.2 x10*3/uL (2.0-8.3); Neutrophils Percent Auto 66.8 % (45-73); Platelet Count 279 X10*3/uL (160-400); Red Blood Count 4.77 X10*6/uL (4.20-5.50); Red Cell Distribution Width 13.3 % (11.0-16.0); White Blood Count 6.3 X10*3/uL (4.8-10.8)
[2023-01-09] MEDS: Morphine Sulfate 4 MG/ML CARTRIDGE IVPUSH (09:17)
[2023-01-09] MEDS: ondansetron HCL 4 MG/2 ML VIAL IVPUSH (09:17)
[2023-01-09] MEDS: 0.9 % Sodium Chloride 1,000 ML 999 ML IV (09:18)
--- NOTE | 2023-01-09 09:27 | PC.NURSE ---
IVF and medication administered per provider order.
[2023-01-09 09:35] LABS: Alanine Aminotransferase 18 U/L (0-31); Alkaline Phosphatase 114 U/L (39-117); Anion Gap 14 (12-20); Aspartate Amino Transferase 19 U/L (5-31); Bilirubin Total 0.3 mg/dL (0.0-1.0); Blood Urea Nitrogen 12 mg/dL (9-16); Calcium 9.5 mg/dL (8.4-10.2); Carbon Dioxide 25 mmol/L (22-29); Chloride 105 mmol/L (96-108); Creatinine Clr Calc Pharmacy 103.7; Estimated Glomerular Filt Rate > 60; Glucose Random 105 mg/dL (60-115); Potassium 3.6 mmol/L (3.3-5.1); Sodium 140 mmol/L (135-145); Total Protein 7.8 g/dL (6.5-8.0)
[2023-01-09 09:42] LABS: HCG Quantitative 6 mIU/mL
[2023-01-09 10:00] VITALS: BP 132/70; PULSE 61; RESP 14; O2SAT 98
--- NOTE | 2023-01-09 10:00 | PC.NURSE ---
pt's pain level reassessed - pt verbalizing 2/10 pain post medication administration. pt still verbalizing some nausea but states that it has decreased.
[2023-01-09] MEDS: iohexoL 350 MG/ML 100 ML INFUS..BTL IV (10:12)
[2023-01-09 11:00] LABS: Appearance Urine Cloudy; Color Urine Yellow; Glucose Urine UA Negative (Negative); Leukocyte Esterase Urine Negative (Negative); Nitrite Urine Negative (Negative); PH 5.5 (5.0-9.0); UMIC TRIGGER UACC YES; Urine Blood Large (3+) (Negative); Urine Ketones Negative (Negative); Urine Protein 30 (1+) mg/dL (Neg-Trace)
[2023-01-09 11:03] LABS: Bacteria Urine None Seen (None Seen); Hyaline Casts Urine 0-2 /LPF (0-2); RBC Urine >20 /HPF (0-2); Squamous Epithelial Cell Urine 0-2 /HPF (0-2); WBC Urine 0-5 /HPF (0-5)
--- NOTE | 2023-01-09 11:33 | PC.NURSE ---
IVF completely infused and d/c'd. vss. nsr on the cardiac monitor technician. pt verbalizes that her pain level is still at a 2/10 post medication administration but worsens upon movement. resting comfortably with the lights dimmed. call richard placed within reach.
[2023-01-09 11:35] VITALS: BP 129/75; PULSE 65; RESP 14; TEMP 36.8; O2SAT 98
[2023-01-09] MEDS: Tamsulosin HCL 0.4 MG CAPSULE PO (12:39)
[2023-01-09] MEDS: methylPREDNISolone Sod Succ 125 MG/2 ML VIAL 60 MG IVPUSH (12:39)
--- NOTE | 2023-01-09 12:44 | PC.NURSE ---
medication administered per provider order.
== END 2023-01-09 12:58 | disposition home or self-care (01) ==
PROVIDERS: Registered Nurse Emergency; Emergency Provider Emergency Medicine; PCP Internal Medicine
DX: N13.2 Hydronephrosis with renal and ureteral calculous obstruction (principal); K57.30 Diverticulosis of large intestine without perforation or abscess without bleeding; R10.31 Right lower quadrant pain; I10 Essential (primary) hypertension; Z79.899 Other long term (current) drug therapy
CPT/HCPCS: 36415; 74177; 80053; 81001; 81003; 84702; 85025; 96361; 96374; 96375; 99284; 99285; J2270; J2405; J2930; Q9967

== ENCOUNTER 2023-01-11 09:54 | Outpatient (REF) | payer OTHER, SELFPAY ==
--- NOTE | ~2023-01-11 | FL_ITS ---
EXAMINATION: XR FLUOROSCOPY UPPER GI WITH AIR CLINICAL INFORMATION: Obesity COMPARISON: None available. TECHNIQUE: Upper GI was performed using thin and thick barium and effervescent granules FINDINGS: Esophageal motility is normal. There is mild gastroesophageal reflux. No hernia is seen. There is fold thickening or bubbly bulb appearance of the duodenal bulb best appreciated images 16 and 17 questionable for hyperacidity. The stomach and duodenum are otherwise normal. No other fold thickening, mass, ulcer or stricture is seen. FLUOROSCOPY TIME: 0.6 minutes DOSE AREA PRODUCT: 7 moreno per centimeter squared. 23 saved fluoroscopic images. FL/FL upper GI w air IMPRESSION: Mild gastroesophageal reflux. Fold thickening or bubbly bulb appearance of the duodenal bulb questionable for hyperacidity.
== END 2023-01-11 09:55 | disposition home or self-care (01) ==
LOC: HO.XRAY 09:54
PROVIDERS: PCP Internal Medicine; Visit Provider Surgery
DX: E66.01 Morbid (severe) obesity due to excess calories (principal); I10 Essential (primary) hypertension; K21.9 Gastro-esophageal reflux disease without esophagitis
CPT/HCPCS: 74246

== ENCOUNTER → 2023-01-11 09:54 | Outpatient (BNV) | payer OTHER, SELFPAY | PROVIDERS: PCP Internal Medicine; Visit Provider Radiology Diagnostic Radiology | DX: E66.9 Obesity, unspecified (principal); Z68.37 Body mass index [BMI] 37.0-37.9, adult; Z01.818 Encounter for other preprocedural examination | CPT/HCPCS: 74246 ==

== ENCOUNTER 2023-01-23 08:05 | Outpatient (AMB) | payer OTHER, SELFPAY ==
--- NOTE | 2023-01-23 11:44 | MHC.OFFVISWM ---
Intake VS Expanded 01/23/23 11:57 Height 5 ft 3 in Weight 207 lb 2 oz BMI 36.7 Body Fat 78.7 Body Fat Percentage 38 Free Fat Mass 128.6 Visceral Mass 19 Water Mass 92.8 BMR 1,628 Intake Visit Reasons: TV Pre Op LSG 02/07/23 Allergies No Known Allergies Allergy (Verified 01/23/23 11:44) Medication List - Last Reconciled 01/23/23 by Gaston Cooper MD albuterol sulfate 90 mcg/actuation 2 puffs inhalation Q6H PRN mecobalamin (vitamin B12) 500 mcg orally one per day; ondansetron 4 mg PO Q8H PRN ondansetron 4 mg PO Q12H pantoprazole 40 mg PO DAILY polyethylene glycol 3350 (Miralax) 17 grams PO DAILY sucralfate 10 mL PO BID vitamin A palmitate 10,000 units orally one per day; HPI TV Pre Op LSG 02/07/23 HPI Details Start time: 11.36am, End time: 12.06pm ?I spent 25 minutes speaking with the patient on the phone plus an additional 5 minutes reviewing and updating records for a total of 30 minutes HPI Comments History of Present Illness Details Overall weight loss: 25.6lbs, or 11% TBWL Is doing 2 Isopure protein shakes (1 scoop in water), 2 Zone Perfect protein bars and one meal (8 forks Exercise: is doing the bike, or treadmill for 300 calories PFSH Medical History Asthma Carpal tunnel syndrome GERD (gastroesophageal reflux disease) Hypertension Morbid obesity Surgical History H/O eye surgery Hx of carpal tunnel repair Hx of tubal ligation Family History Father Hypertension FH: prostate cancer Mother Hypertension Breast cancer Raynaud disease Amputee, below knee Sister Hypertension Social History Alcohol intake: never Patient Tobacco Use Status: Never used Tobacco Assessment & Plan Assessment & Plan (1) Obesity: Code(s): E66.9 - Obesity, unspecified Plan: 1. Plan for lap sleeve gastrectomy including upper GI endoscopy. All tests has been completed and reviewed and the patient is cleared for the surgery. ?If diaphragmatic or ventral hernias are present at time of surgery, these will be repaired laparoscopically as well. Risks and complications were discussed in detail including possible conversion to an open procedure, anastomotic leak, bleeding requiring transfusion, small bowel obstruction, , DVT and pulmonary embolism, cardiac, or pulmonary complications, as half-way complications such as anastomotic ulcer, insufficient weight loss and vitamin deficiencies. I emphasized the importance of close follow-up, adherence to instructions and good communication. So far she has proven to be an excellent communicator and very compliant with all our directions accomplishing a great weight loss. I believe that she is an excellent candidate and she is ready. 2. Preop prescriptions were provided and explained the purpose of each one. Need to be purchased preop. Start Pantoprazole now as you get it from the pharmacy, 1 pill per day. Sucralfate and Zofran are for after surgery as needed. 3. Bowel prep: please do 7 packets ?of Miralax mixing each one with a an 8oz glass of water, crystal light, gatorade zero, or propel ?on 02/05/23 and the same amount on 02/06/23. Continue the protein shakes during? the bowel prep. 4. Needs to purchase 1oz medicine cups . 5. Needs to purchase Children's liquid Tylenol for postop pain control. 6. Avoid aspirin, motrin, Advil, Aleve, Ibuprofen, Naproxyn. Tylenol is OK. 7. She needs to purchase the Celebrate 4:1 protein shakes from the hospital's gift shop. 8. Will do basic preop blood work-up any day between Monday05/09/22 and Monday05/13/22 fasting for 12 hours and is scheduled to see the Anesthesiologist prior to the day of surgery. 9. Importance of adherence to postop folllow-up and recommendations was underscored and she understands that. 10. Stop food and bars as of Monday01/28/23 and continue with 3 Isopure protein shakes (HALF scoop EACH in 8oz almond milk) at 7am-9am, 10am-12pm and 1pm-3pm and TWO more Isopure protein shakes with ONE scoop EACH in 8oz of almond milk at 4pm-6pm and 7pm-9pm 11. No soups, broths or V8 12. The patient's?medical?history has been reviewed and they are considered low risk for post op DVT and therefore DVT prophylaxis is not considered necessary. Travel after surgery was reviewed. The patient has not disclosed any travel plans during the first 30 days after surgery and they have been advised that within the first 30 days after surgery any bus, plane, train or car travel over 2 hours in duration is contraindicated due to the possibility of developing blood clots from immobility. Any travel, needs to include periods of ambulation of 10 minutes in duration every 2 hours.? Patient was instructed to discuss any plans for travel during this period with their bariatric surgeon.? 13. Please take at the day of surgery the following medications: NONE 14. Stop any control pills and don't use them for one month after surgery 15. Absolutely no smoking or vaping, or marijuana until the surgery and for at least the first 4 weeks. Only nicotine patches are allowed. 16. Send me weight measurements on and then on the day of surgery before you go to the hospital. 17. Avoid any steroids by mouth for any reason. Let me know if someone prescribes them to you (2) BMI 36.0-36.9,adult: Code(s): Z68.36 - Body mass index [BMI] 36.0-36.9, adult Orders: Orders Type and Screen Today E66.9 - Obesity, unspecified, Z68.36 - Body mass index [BMI] 36.0-36.9, adult Comprehensive Met. Panel Today E66.9 - Obesity, unspecified, Z68.36 - Body mass index [BMI] 36.0-36.9, adult C Reactive Protein Today E66.9 - Obesity, unspecified, Z68.36 - Body mass index [BMI] 36.0-36.9, adult Hemoglobin A1c Today E66.9 - Obesity, unspecified, Z68.36 - Body mass index [BMI] 36.0-36.9, adult Insulin Today E66.9 - Obesity, unspecified, Z68.36 - Body mass index [BMI] 36.0-36.9, adult Lipid Panel Today E66.9 - Obesity, unspecified, Z68.36 - Body mass index [BMI] 36.0-36.9, adult TSH reflex Free T4 Today E66.9 - Obesity, unspecified, Z68.36 - Body mass index [BMI] 36.0-36.9, adult Prothrombin Time INR Today E66.9 - Obesity, unspecified, Z68.36 - Body mass index [BMI] 36.0-36.9, adult Partial Thromboplastin Time Today E66.9 - Obesity, unspecified, Z68.36 - Body mass index [BMI] 36.0-36.9, adult Complete Blood Count Auto Diff Today E66.9 - Obesity, unspecified, Z68.36 - Body mass index [BMI] 36.0-36.9, adult Medications: New pantoprazole 40 mg PO DAILY 30 tabs 2RF K21.9 - Gastro-esophageal reflux disease without esophagitis sucralfate 10 mL PO BID 400 mL 0RF K21.9 - Gastro-esophageal reflux disease without esophagitis ondansetron Only take one every 12 hours as needed if you have nausea 4 mg PO Q12H 20 tabs 0RF nausea and vomiting R11.0 - Nausea polyethylene glycol 3350 (Miralax) Mix each packet with 8oz of water, Crystal light, or Gatorade zero, or Propel and do 7 packets on 02/05/23 and another 7 packets on 02/06/23 17 grams PO DAILY 14 ea 0RF Telehealth Telehealth Location of provider rendering services: practice address Location of patient: address on file Patient Identification confirmed using: Name, : Yes Telehealth method: voice only Patient verbally consented to treatment: Yes Patient verbally consented to billing insurance company: Yes Patient informed of any privacy concerns related to visit: Yes Minutes spent on Phone/Video with Pt.: 30 Coding Level of Care Code Tele Est Pt Level 4 (92905) Diagnoses Obesity E66.9 BMI 36.0-36.9,adult Z68.36 Time Spent (min) 30
[2023-01-23 11:57] VITALS: BMI 36.7
== END 2023-01-23 12:07 | disposition home or self-care (01) ==
LOC: HO.HBS 08:05
PROVIDERS: PCP Internal Medicine; Visit Provider Surgery
DX: E66.9 Obesity, unspecified (principal); Z68.36 Body mass index [BMI] 36.0-36.9, adult
CPT/HCPCS: 99214

== ENCOUNTER → 2023-01-23 08:05 | Outpatient (BNVA) | payer OTHER, SELFPAY | PROVIDERS: PCP Internal Medicine; Visit Provider Surgery ==

== ENCOUNTER 2023-02-02 07:43 | Outpatient (REF) | payer OTHER, SELFPAY ==
[2023-02-02 08:06] LABS: MANUAL DIFF FLAG NO
[2023-02-02 08:13] LABS: Basophils Percent Auto 0.5 % (0-2); Eosinophils Absolute Auto 0.1 X10*3/uL (0.0-0.4); Hemoglobin 13.7 g/dl (12.0-16.0); Imm Gran Abs Auto 0.01 X10*3/uL (0.00-0.03); Imm Gran Pct Auto 0.2 % (0.0-0.4); Lymphocytes Absolute Auto 1.5 X10*3/uL (1.2-4.9); Mean Corpuscular HGB Conc 33.4 g/dl (31.0-35.0); Mean Corpuscular Hemoglobin 26.7 pg (27.0-33.0); Mean Corpuscular Volume 79.8 fL (80.0-98.0); Mean Platelet Volume 10.4 fL (9.4-12.3); Monocytes Absolute Auto 0.5 X10*3/uL (0.1-1.2); Monocytes Percent Auto 9.3 % (2-11); Neutrophils Absolute Auto 3.4 x10*3/uL (2.0-8.3); Platelet Count 298 X10*3/uL (160-400); Red Blood Count 5.14 X10*6/uL (4.20-5.50); Red Cell Distribution Width 13.3 % (11.0-16.0); White Blood Count 5.5 X10*3/uL (4.8-10.8)
[2023-02-02 08:17] LABS: INTERNATIONAL NORM RATIO 1.2 (0.9-1.1)
[2023-02-02 08:20] LABS: Partial Thromboplastin Time 34.1 SEC (26.0-36.4)
[2023-02-02 08:34] LABS: Alanine Aminotransferase 23 U/L (0-31); Albumin Level 4.1 g/dL (3.5-5.0); Alkaline Phosphatase 108 U/L (39-117); Anion Gap 16 (12-20); Aspartate Amino Transferase 29 U/L (5-31); Bilirubin Total 0.5 mg/dL (0.0-1.0); Blood Urea Nitrogen 17 mg/dL (9-16); C Reactive Protein 1.22 mg/dL (< or = 0.50); Calcium 10.1 mg/dL (8.4-10.2); Carbon Dioxide 21 mmol/L (22-29); Chloride 106 mmol/L (96-108); Cholesterol 281 mg/dL (<200); Estimated Glomerular Filt Rate > 60; Glucose Random 83 mg/dL (60-115); HDL Cholesterol 39 mg/dL (>40); LDL Cholesterol Calculated 219 mg/dL (<100); Potassium 4.1 mmol/L (3.3-5.1); Sodium 139 mmol/L (135-145); Triglycerides 119 mg/dL (<150)
[2023-02-02 08:49] LABS: Insulin 12 uU/mL (2-29)
[2023-02-02 08:52] LABS: Estimated Average Glucose 108 mg/dL; Hemoglobin A1c % 5.4 % (<6.0)
== END 2023-02-02 07:44 | disposition home or self-care (01) ==
LOC: HO.LAB 07:43
PROVIDERS: PCP Internal Medicine; Visit Provider Surgery
DX: E66.9 Obesity, unspecified (principal); Z68.36 Body mass index [BMI] 36.0-36.9, adult
CPT/HCPCS: 36415; 80053; 80061; 83036; 83525; 84443; 85025; 85610; 85730; 86140

== ENCOUNTER 2023-02-07 05:57 | Day surgery (SDC) | payer OTHER, SELFPAY ==
[2023-01-23 12:10] VITALS: BMI 36.7
--- NOTE | 2023-02-03 10:16 | HO.ANESPROP2 ---
Documented by User: Reyna Bautista NP 02/03/23 10:19 HPI - Anesthesia Eval Consult details Narrative: 47yo F for Gastrectomy Sleeve Egd, poss diaphragmatic hernia, poss Ventral hernia,poss open PMFSH Active Problems Active Problems: All Active Problems (Updated 01/23/23 @ 11:40 by Gaston Cooper MD) BMI 36.0-36.9,adult (Acute) BMI 37.0-37.9, adult (Acute) Obesity (Acute) Obesity (BMI 30-39.9) (Acute) Vitamin A deficiency (Acute) H. pylori infection (Acute) Vitamin B12 deficiency (Acute) Asthma (Acute) GERD (gastroesophageal reflux disease) (Acute) Hypertension (Acute) Morbid obesity (Acute) Past Medical History Medical History (Updated 02/07/23 @ 07:45 by Gaston Cooper MD) Asthma Carpal tunnel syndrome GERD (gastroesophageal reflux disease) Hypertension Morbid obesity Family History Family History Father Hypertension FH: prostate cancer Mother Hypertension Breast cancer Raynaud disease Amputee, below knee Sister Hypertension Surgical History Surgical History (Updated 02/07/23 @ 09:42 by JESSICA CedilloC) H/O eye surgery Hx of carpal tunnel repair Hx of tubal ligation Social History Social History (Updated 01/23/23 @ 12:12 by Monica Villa RN) Household Members: Family Housing: House Are you a primary healthcare applications analyst to a significant other at home: No Do you presently have visiting nurse or other home services: No Alcohol intake: never Patient Tobacco Use Status: Never used Tobacco Use of substances other than those prescribed or required for medical reasons: No Currently Displaying Signs/Symptoms of Drug Intoxication Withdrawal: No Have you been hit, kicked, punched, or otherwise hurt by someone within the past year? If so, by whom?: No Do you feel safe in your current relationship?: Yes Is there a partner from a previous relationship who is making you feel unsafe now?: No Are you made to feel afraid or neglected: No Are you DNR?: No Advance Directives: No Advance Directives Information Provided: Yes Advance Directives on File: No Do you have thoughts of harming others: None Do you have a plan to hurt others: No Plan Recently lost weight without trying: No Nutrition Risks: No Nutritional Risk Patient : No FDLMP: 2016 : No Poor oral hygiene: No service: No Meds Allergies Allergy/AdvReac Type Severity Reaction Status Date / Time No Known Allergies Allergy Verified 02/07/23 06:08 Home Medications Medication Instructions Recorded Confirmed Last Taken Type albuterol sulfate 90 mcg/actuation 2 puff inhalation Q6H PRN 10/10/22 02/07/23 02/03/22 History aerosol inhaler Shortness Of Breath Or Wheezing Exam Exam Date and Time: February 03, 2023 1016 Height,Weight and Vital Signs: Height 5 ft 3 in Weight 93.894 kg Pertinent Lab Results Pertinent Lab Results: Laboratory Tests 02/02/23 08:00 Blood Type O Positive Antibody Screen NEGATIVE Laboratory Tests 02/02/23 02/02/23 08:05 08:05 WBC 5.5 Hgb 13.7 Hct 41.0 Plt Count 298 Sodium 139 Potassium 4.1 Chloride 106 Carbon Dioxide 21 L BUN 17 H Creatinine 0.72 Narrative Narrative: EKG 2022 Vent. Rate : 069 BPM ? ? Atrial Rate : 069 BPM ?? P-R Int : 140 ms? QRS Dur : 086 ms ? ? QT Int : 408 ms ? ? ? P-R-T Axes : 046 052 048 degrees ?? QTc Int : 437 ms ? Normal sinus rhythm Normal ECG No previous ECGs available Assessment and Plan Assessment Anesthesia Assessment: Chart Reviewed Documented by User: Storm Barrientos MD 02/07/23 21:44 [facility] Past Medical History Medical History (Updated 02/07/23 @ 07:45 by Gaston Cooper MD) Asthma Carpal tunnel syndrome GERD (gastroesophageal reflux disease) Hypertension Morbid obesity Functional capacity: independent ambulation Family History Family History Father Hypertension FH: prostate cancer Mother Hypertension Breast cancer Raynaud disease Amputee, below knee Sister Hypertension Family history of problems with anesthesia: Yes (ponv in mother ) Surgical History Surgical History (Updated 02/07/23 @ 09:42 by Yessenia Muir PA-C) H/O eye surgery Hx of carpal tunnel repair Hx of tubal ligation History of Problems with Anesthesia: No Social History Social History (Updated 01/23/23 @ 12:12 by Monica Villa RN) Household Members: Family Housing: House Are you a primary healthcare applications analyst to a significant other at home: No Do you presently have visiting nurse or other home services: No Alcohol intake: never Patient Tobacco Use Status: Never used Tobacco Use of substances other than those prescribed or required for medical reasons: No Currently Displaying Signs/Symptoms of Drug Intoxication Withdrawal: No Have you been hit, kicked, punched, or otherwise hurt by someone within the past year? If so, by whom?: No Do you feel safe in your current relationship?: Yes Is there a partner from a previous relationship who is making you feel unsafe now?: No Are you made to feel afraid or neglected: No Are you DNR?: No Advance Directives: No Advance Directives Information Provided: Yes Advance Directives on File: No Do you have thoughts of harming others: None Do you have a plan to hurt others: No Plan Recently lost weight without trying: No Nutrition Risks: No Nutritional Risk Patient : No FDLMP: 2016 : No Poor oral hygiene: No service: No Meds Allergies Allergy/AdvReac Type Severity Reaction Status Date / Time No Known Allergies Allergy Verified 02/07/23 06:08 Home Medications Medication Instructions Recorded Confirmed Last Taken Type albuterol sulfate 90 mcg/actuation 2 puff inhalation Q6H PRN 10/10/22 02/07/23 02/03/22 History aerosol inhaler Shortness Of Breath Or Wheezing Exam Airway Mallampati Class: III Loose/Missing/Broken Teeth: Yes Assessment and Plan Assessment Anesthesia Assessment: Anesthesia Plan Discussed Final Anesthetic Review Family History of Problems with Anesthesia: Yes (ponv in mother ) History of Problems with Anesthesia: No NPO: Yes ASA Class: III Final Preanesthetic Review: Meds/Allgs Chart Reviewed, Consent Obtained/Reviewed and Anes Risks/Benef Reviewed Anesthetic Plan Anesthetic Plan: GA Disposition: Standard PACU
--- NOTE | 2023-02-05 21:32 | MHC.SHP ---
Pre-Procedural Eval Section A Date of Service: 02/05/23 The patient is an INPATIENT: No The History & Physical has been completed within 30 days and I have reviewed it.: Yes Section B Chief Complaint: Obesity, unspecified Relevant Family History (Specify if Yes): No Relevant Social History: None Present Medications: None Medical History: No relevant PMH History of Previous Operations: No relevant previous surgery Allergies: Allergies Allergy/AdvReac Type Severity Reaction Status Date / Time No Known Allergies Allergy Verified 01/23/23 12:09 Review of Systems Sugical H&P ROS: Negative: Constitution, Cardiovascular, Respiratory, Neurological, Psychiatric, Hem-Onc, Allergic/Immunologic, Gastrointestinal, Genitourinary, Musculoskeletal, Integumentary, Endocrine and Eyes/Ears/Nose/Throat Exam Surgical H&P Exam: Normal: HEENT, Normal: Heart, Normal: Lungs, Normal: Extremities, Normal: Abdomen, Normal: Skin and Normal: Neurological Plan Diagnosis/Plan: Unchanged I have reviewed the history and physical and performed a pertinent physical examination on my patient. No changes have occurred unless specified. Time Spent With Patient Time: Total time managing care of this patient today ____ minutes.
[2023-02-07] VITALS (20 sets, daily range): BP systolic 123–149; BP diastolic 63–84; PULSE 72–101; RESP 16–18; TEMP 36.1–37.1; O2SAT 97–100
[2023-02-07] MEDS: Aprepitant 32 MG/4.4 ML VIAL IVPUSH (06:38)
[2023-02-07] MEDS: Lactated Ringers 1,000 ML 999 ML IV (06:38)
[2023-02-07] MEDS: Lactated Ringers 1,000 ML 100 ML IVCONT ×3 (06:38→22:48)
--- NOTE | 2023-02-07 07:40 | P.BOP_ITS ---
Brief Operative Note Date of Service: 02/07/23 Pre-op diagnosis: Severe obesity with comorbidities (see below) Post-op diagnosis: same Procedure: INITIAL PATIENT BMI ON PRESENTATION AT OUR OFFICE: 41.2 kg/m2 LAST BMI BEFORE SURGERY: 35.5 kg/m2 COMORBIDITIES: hypertension, asthma, GERD, liver steatosis ?The patient presented to the Weight Management Program with significant obesity that was negatively impacting the patient's comorbidities as listed above.? The program is a phased program with a special focus on preoperative medical weight management to promote substantial weight loss and prepare the patients for the second phase of the program: bariatric surgery. The patient participated in an intensive weekly lifestyle ?intervention and exercise program during which the patient ?has lost between the initial office visit and the last preoperative visit 23.6 lbs, or 14% of initial actual body weight. It was deemed appropriate for the patient to now have bariatric surgery. In light of the current Covid-19 pandemic and the well documented strong association of obesity and increased risk of worse outcomes if infected with Covid-19 (REFERENCES: https://pubmed.ncbi.nlm.nih.gov/05770945/ ,? https: //pubmed.ncbi.nlm.nih.gov/65466642/ ), any delay in undergoing bariatric surgery may lead to the patient's worsening health condition and increased?risk of more severe Covid-19 disease if infected. In addition a recent?study from [facility] published in [facility] on 05/31/2021 ([email or web address]) found that, among patients with obesity, substantial weight loss achieved with surgery was associated with improved outcomes of COVID-19 infection. The findings suggest that obesity can be a modifiable risk factor for the severity of COVID-19 infection. In addition, the patient met the BMI-criteria for bariatric surgery based on the BMI on initial presentation. The patient should not be penalized for achieving such weight loss because ?it is not sustainable long-term without surgical intervention and it was achieved in preparation for bariatric surgery ?under my direction and based on my published research ([email or web address]).pdf and? https://www.soard.org/article/[email or web address](06)56610-X/pdf ) ?that a 10% preoperative weight loss improves long-term weight loss after surgery and reduces perioperative complications.? Insurance carriers such as [facility] have endorsed my recommendations ?and have included in their policies criteria to include a 10% preoperative weight loss requirement. PROCEDURE: Esophago-gastroscopy, laparoscopic lysis of adhesions, laparoscopic sleeve gastrectomy and laparoscopic gastropexy INDICATIONS: This is a 47 year-old female who was electively scheduled for laparoscopic, possibly open sleeve gastrectomy. The risks and complications of the procedure were discussed with the patient in advance, particularly the p ossibility of ; pulmonary embolism; staple line leak; bleeding; GERD; cardiac, pulmonary, or renal complications; as well as long-term problems such as insufficient weight loss, vitamin deficiency, strictures, or ulcers. The patient understood all the risks, and was in agreement to proceed with surgery. DESCRIPTION OF PROCEDURE: After informed consent was obtained from the patient, the patient was given preoperative antibiotics, and was transferred to the operating room. After successful induction of general anesthesia, pneumatic compression devices were placed on both lower extremities. An upper endoscopy was performed next. The oropharynx and esophagus appeared to be within normal limits. There was no diaphragmatic hernia present consistent with the findings of the preoperative upper GI. The stomach was entered. Then after all fluid and air were suctioned and the stomach was fully decompressed, the scope was withdrawn and secured in the mid esophagus. The patient was then prepped and draped in the usual sterile manner, and abdominal access was established at the right upper quadrant with the Jaguar technique. A 12 mm blunt port was inserted, and the abdomen was insufflated with CO2 to a pressure of 15 mmHg. Under direct visualization, additional ports were placed, specifically two 5 mm Versi-step ports to the left upper quadrant, and a 5 mm Versi-Step port to the right upper quadrant. 1% lidocaine plain was used to infiltrate all port sites as well as all fascia defects. There were adhesions in the abdomen from previous tubal ligation involving the omentum and the left anterior abdominal wall. Those were lysed completely with the ultrasonic device. Following that, the patient was placed in a steep reverse Trendelenburg position. An additional 5 mm port was placed to the right flank for the Mediflex retractor that was used to retract the left lobe of the liver. The gastro-esophageal fat pad was opened with the ultrasonic device (Thunderbeat, Olympus) and the anterior esophagus and hiatus were exposed. The angle of His was opened with the ultrasonic device the fundus of the stomach from any diaphragmatic and splenic attachments. I then opened the gastrocolic ligament between the transverse colon and the greater curvature of the stomach with the ultrasonic device to enter the lesser sac and facilitate the ligation of the short gastric vessels. I started at a mid-point along the greater curvature and using the Thunderbeat, all short gastric vessels were divided all the way to the angle of His until the left citlali was completely dissected at its entirety. I then divided the gastro-colic ligament distally to a distance of about 3-4 cm proximal to the pylorus. The stomach was then divided transversely with one Endo ALESSIA-45 purple and four ALESSIA-60 articulating purple loads using the Xanodyne stapler and loads. Every effort was made that the gastric sleeve had a tubular shape and an even caliber throughout. Once the sleeve resection was completed, the staple line of the gastric sleeve was reinforced with Hemoclips. The resected stomach was retrieved without difficulty from the Jaguar port. A gastropexy was then performed in order to prevent postoperative GERD and partial gastric volvulus. Several interrupted 2.0 Surgidac sutures were placed between the sleeve's staple line and the previously divided greater omentum and gastro-colic ligament using the Endo-Stitch device. ?An upper endoscopy was performed. There was no narrowing at the GE junction. The scope was easily advanced all the way to the pylorus which was clearly visualized. There was no narrowing anywhere and the sleeve's caliber was even throughout. The sleeve's staple line was inspected and there was no evidence of ischemia, bleeding or dehiscence. At that point the gastroscope was withdrawn from the patient?s mouth while we were decompressing the bowel and the stomach from any remaining air. I looked into the lesser sac to see how the sleeve was situating and it was situating well. There was no bleeding from the staple line, spleen, or short gastric vessels. The Mediflex retractor was removed, and the undersurface of the liver was inspected and there was no bleeding. The patient was placed in supine position. I closed the fascial defect of the 12 mm port site with a figure of eight #1 Polysorb suture. Then 30cc Ropivacaine plain with 10 mg of Dexamethasone were used to infiltrate the fascial closure as well as all skin incisions. At this point, the abdomen was deflated, all ports were removed under direct vision, and no bleeding was noted from any of the port sites. The skin incisions were irrigated with saline and were closed with 4-0 absorbable monofilament sutures. Steri-Strips and OpSites were used to cover all incisions. The patient was extubated and was transferred in stable condition to the recovery room for further care. I was present and performed all galarza parts of the procedure. Ms. Muir was the assistant distribution manager. There were no residents to assist with this case. Rhett Cooper MD, PhD, FACS Surgeon: Gaston Cooper MD Anesthesia: GETA, local and other (TAP block) Was an Lockstitcher used for this Procedure?: No Lockstitcher: Yessenia Muir Estimated blood loss (mL): 10 IV fluids (mL): 3,000 Urine output (mL): 0 (No Victor to record output) Pathology: other (Stomach) Condition: stable Disposition: PACU
--- NOTE | 2023-02-07 07:42 | PC.NURSE ---
[facility] waiver signed due to having metal clipped hair extensions in. OR nurse Latia made aware.
--- NOTE | 2023-02-07 07:44 | P.PNGS_ITS ---
Subjective Subjective Date of Service: 02/08/23 Interval history: Feels well. Mild incisional pain. She is tolerating phase 1 bariatric diet Physical Exam Vital Signs: Vital Signs: Last Vital Signs Temp 97.2 F 02/07/23 06:16 Pulse 94 02/07/23 06:16 Resp 16 02/07/23 06:16 BP 123/63 02/07/23 06:16 Pulse Ox 100 02/07/23 06:16 O2 Del Method Room Air 02/07/23 06:16 BMI result Body Mass Index 36.7 GI: Inspection: Yes normal to inspection, Yes incision (clean, dry and intact) and Yes obesity Palpation (GI): Soft to palpation Extrem: Right lower extremity: normal to inspection (no calf tenderness) Left lower extremity: normal to inspection (no calf tenderness) Objective Data Active Medications Albuterol Sulfate (Albuterol Sulfate (0.083%) 2.5 Mg/3 Ml Vial.Neb) 2.5 mg INHALE ONCE PRN PRN Reason: Shortness of Breath/Wheezing Lactated Ringer's (Lr) 1,000 mls @ 100 mls/hr IVCONT .Q10H [facility] Last Admin: 02/07/23 06:38 Dose: 100 mls/hr Documented By: NATASHA Lactated Ringer's (Lr) 1,000 mls @ 999 mls/hr IV .Q1H1M [facility] Stop: 02/07/23 08:15 Last Admin: 02/07/23 06:38 Dose: 999 mls/hr Documented By: NATASHA Labs 02/08/23 05:15 02/08/23 05:15 Procedures Date of Service Date of Service: 02/08/23 Progress Note: A&P Assessment and plan (1) Obesity: Status: Acute Assessment and Plan: s/p laparoscopic sleeve gastrectomy, lysis of adhesions and gastropexy Doing well Will check am labs and if OK the patient will be discharged home (2) BMI 35.0-35.9,adult: Status: Acute (3) Hypertension: Status: Acute (4) GERD (gastroesophageal reflux disease): Status: Acute (5) Asthma: Status: Acute (6) Steatosis, liver: Status: Acute (7) S/P laparoscopic sleeve gastrectomy: Status: Acute Time Spent With Patient Time: Total time managing care of this patient today ____ minutes. Quality Stroke Does the patient have a stroke diagnosis?: No VTE Prior VTE?: No VTE Risk Level:: Surgical - moderate VTE Device Contraindication: N/A - Device Ordered VTE Drug Contraindication: Treatment Not Indicated
--- NOTE | 2023-02-07 09:44 | PM.DS ---
DS: Providers Provider Date of Service: 02/08/23 Primary care physician: Dixon Rubio MD DS: Diagnosis Discharge Diagnosis (1) Obesity: Status: Acute (2) BMI 35.0-35.9,adult: Status: Acute (3) Hypertension: Status: Acute (4) GERD (gastroesophageal reflux disease): Status: Acute (5) Asthma: Status: Acute (6) Steatosis, liver: Status: Acute DS: Summary Hospital Course Hospital Course: ADMITTING DIAGNOSIS: morbid obesity, GERD, HTN DISCHARGE DIAGNOSIS: same, s/p laparoscopic sleeve gastrectomy PAST SURGICAL HISTORY: bilateral tubal ligation, carpal tunnel PROCEDURE: upper endoscopy, laparoscopic sleeve gastrectomy DISCHARGE SUMMARY: History of Present Illness: The patient is a 47 year-old woman with a BMI of 41.2 kg/m2 and associated co-morbidities as described above. The patient had extensive work-up, lost 25.6 lbs preoperatively and was electively scheduled for laparoscopic, possible open sleeve gastrectomy and gastropexy. Risks and complications of the surgery were discussed with the patient in advance, particularly the possibility of , pulmonary embolism, anastomotic leak, bleeding, bowel injury, GERD, cardiac, renal or pulmonary complications. The patient understood all the risks and was in agreement with the surgical plan. Hospital Course: The patient underwent an uneventful laparoscopic sleeve gastrectomy with gastropexy on the day of admission. Postoperatively, the patient was transferred to the surgical floor. The patient received IV Acetaminophen and IV dilaudid for pain control. Patient was started on bariatric phase 1 diet POD #0. On postoperative day one, the patient was feeling well without nausea, vomiting, fevers, or tachycardia. The patient had some mild incisional pain and the abdomen was soft. On the morning of postoperative day one, the patient was continued on 1 ounce of water or ice every half hour. During the day, the patient did fairly well, having some incisional pain, but able to ambulate adequately and to tolerate liquids well. Since the patient is doing well, we decided that the patient was ready to be discharged. The patient was given instructions to follow-up with me next week and to call my office for any fever over 101, persistent abdominal pain, nausea, vomiting, GERD, symptoms of DVT such as calf tenderness, or leg swelling, or pulmonary embolism such as chest pain or shortness of breath. The patient was also instructed to drink 40-60 ounces of liquids per day using the 1-ounce cups. The patient had been given prescriptions for Tylenol for pain, Zofran prn for nausea, and pantoprazole and carafate previously. The patient was encouraged to ambulate and use the incentive spirometer. The patient was allowed to shower, but no baths, and encouraged to stay active at home. All of these instructions were given to the patient personally. All questions were answered and the patient understood all instructions, the instructions were also given to the patient in print. Time Spent with Patient Time attestation: Total time managing care of this patient today ____ minutes. Discharge coordination time: Less than 30 minutes Quality: Safe Use of Opioids Does Pt have an Active Cancer Diagnosis on the Problem List?: No Quality: Stroke Does the patient have a stroke diagnosis?: No Physical Exam Vital Signs: Vital Signs: Last Vital Signs Temp 97.2 F 02/07/23 06:16 Pulse 94 02/07/23 06:16 Resp 16 02/07/23 06:16 BP 123/63 02/07/23 06:16 Pulse Ox 100 02/07/23 06:16 O2 Del Method Room Air 02/07/23 06:16 BMI result Body Mass Index 36.7 DS: Data Data Completed and Pending Pending studies at discharge: Pending at discharge 02/07/23 09:04 Surgical [PTH] Routine Discharge Plan Discharge Patient Disposition: Home, Self-Care Referrals: Dixon Rubio MD [Primary Care Provider] - 1 Week Discharge Medications: No Action mecobalamin (vitamin B12) 500 mcg tablet,chewable 500 mcg PO .COMPLEX Qty: 30 2RF Rx Instructions: 500 mcg orally one per day; vitamin A palmitate 3,000 mcg (10,000 unit) capsule 10,000 unit PO .COMPLEX Qty: 30 1RF Rx Instructions: 10,000 units orally one per day; ondansetron 4 mg tablet,disintegrating 4 mg PO Q8H PRN (Reason: nausea and vomiting) Qty: 14 0RF Patient Comments: for kidney stones per patient albuterol sulfate 90 mcg/actuation HFA aerosol inhaler 2 puff inhalation Q6H PRN (Reason: Shortness Of Breath Or Wheezing) pantoprazole 40 mg tablet,delayed release (DR/EC) 40 mg PO DAILY Qty: 30 2RF sucralfate 100 mg/mL suspension 10 ml PO BID Qty: 400 0RF ondansetron 4 mg tablet,disintegrating 4 mg PO Q12H Qty: 20 0RF Patient Comments: post op gastric sleeve Rx Instructions: Only take one every 12 hours as needed if you have nausea Discharge Orders: Discharge Order (Routine); Ordered 02/08/23 Ordered By: Gaston Cooper Activity on Discharge: No heavy lifting Activity Restrictions/Additional Instructions: No tub baths, sex or returning to work until discussed at first post op appointment. No exercise, alcohol, tobacco or illegal drug use. Continue to use incentive spirometer hourly while awake. Walk in home for 5- 10 minutes every 2 hours during the first week. Continue phase 1 diet today and start phase 2 diet tomorrow morning. Follow all instructions in the bariatric handbook and call with any questions. 1. Please call your doctor or come back to the emergency room should any new symptoms arise. 2. You will receive a courtesy call from [facility] 24-48 hours after discharge. 3. Activity: abstain from alcohol, practice limited stair climbing, no bending, no driving, no exercise, no illicit substances, no lifting, no sex, no tub bath, no work. 4. Diet: continue as discussed with bariatric team.. 5. Dressing Change/Wound Care: Do not change or remove surgical dressings unless they are wet or soiled. 6. Call your doctor if: - Your temperature exceeds 101.5 F - You experience excessive pain or swelling - You have an unexpected reaction to medication - You have excessive bleeding - You experience continued vomiting/nausea - Your incision begins to separate - Your incision shows signs of infection such as increased redness, swelling, excessive pain, heat, or drainage (light blood or clear fluid is normal) 7. General instructions: No lifting greater than 5 lbs for the next 4 weeks[address] within 24 hours of taking narcotic pain medications. If you do not move your bowels in the next 2 days, please take milk of magnesia over the counter. Please follow the post op diet and do not advance your diet until you are seen in the office in about 2 weeks. Please walk around your home every hour or two to prevent blood clots from forming in your legs. You do not need to wake from sleeping to walk. Please sleep in a bed or couch to prevent kinking at the hips and knees. Please take your incentive spirometer (your lung airconditioning drafting officer) home with you and use it for the next few days to prevent pneumonias. You may shower, no hot tubs, baths or swimming pools. Please call the office with any questions or concerns such as increasing abdominal pain, fever, chills, shortness of breath, chest pain, leg pain or swelling, or redness or drainage from your incisions. Do not hesitate to contact the office with any questions at . The patient's medical history has been reviewed and they are considered low risk for post op DVT and therefore DVT prophylaxis is not considered necessary. Travel after surgery was reviewed. The patient has not disclosed any travel plans during the first 30 days after surgery and they have been advised that within the first 30 days after surgery any bus, plane, train or car travel over 2 hours in duration is contraindicated due to the possibility of developing blood clots from immobility. Any travel, needs to include periods of ambulation of 10 minutes in duration every 2 hours. The patient was instructed to discuss any plans for travel during this period with their bariatric surgeon. Discharge Date/Time: 02/08/23 09:12
[2023-02-07 10:03] LABS: Hematocrit 34.9 % (37.0-47.0); Hemoglobin 11.5 g/dl (12.0-16.0)
[2023-02-07 10:17] LABS: Anion Gap 14 (12-20); Blood Urea Nitrogen 11 mg/dL (9-16); Carbon Dioxide 21 mmol/L (22-29); Chloride 108 mmol/L (96-108); Creatinine Clr Calc Pharmacy 115.8; Estimated Glomerular Filt Rate > 60; Glucose Random 86 mg/dL (60-115); Potassium 3.3 mmol/L (3.3-5.1); Sodium 140 mmol/L (135-145)
[2023-02-07] MEDS: Famotidine/PF 20 MG/2 ML VIAL IVPUSH ×2 (13:03→20:00)
[2023-02-07] MEDS: ceFAZolin Sodium/Dextrose,Iso 2 GM/50 ML PIGGYBACK IV (14:00)
--- NOTE | 2023-02-07 16:13 | MHC.CM.PN ---
S/P Gastric sleeve. Patient lives with family. She is independent with all functional mobility. She declined the offer to document a HCP. DP Home self care. A family member will provide transportation home.
[2023-02-07] MEDS: Acetaminophen 1,000 MG/100 ML PIGGYBACK 400 MG IV (20:00)
[2023-02-07] MEDS: 0.9 % Sodium Chloride Flush 3 ML SYRINGE IVFLUSH (20:01)
[2023-02-08] MEDS: Acetaminophen 1,000 MG/100 ML PIGGYBACK 400 MG IV (02:32)
[2023-02-08] MEDS: ondansetron HCL 4 MG/2 ML VIAL IVPUSH (02:37)
[2023-02-08 03:36] VITALS: BP 110/60; PULSE 71; RESP 14; TEMP 36.2; O2SAT 98
[2023-02-08 05:46] LABS: MANUAL DIFF FLAG NO
[2023-02-08 05:51] LABS: Basophils Percent Auto 0.1 % (0-2); Hematocrit 34.6 % (37.0-47.0); Hemoglobin 11.2 g/dl (12.0-16.0); Imm Gran Abs Auto 0.04 X10*3/uL (0.00-0.03); Imm Gran Pct Auto 0.5 % (0.0-0.4); Lymphocytes Absolute Auto 1.1 X10*3/uL (1.2-4.9); Lymphocytes Percent Auto 12.8 % (20-40); Mean Corpuscular HGB Conc 32.4 g/dl (31.0-35.0); Mean Corpuscular Hemoglobin 26.2 pg (27.0-33.0); Mean Corpuscular Volume 80.8 fL (80.0-98.0); Mean Platelet Volume 11.5 fL (9.4-12.3); Monocytes Absolute Auto 0.6 X10*3/uL (0.1-1.2); Monocytes Percent Auto 7.4 % (2-11); Neutrophils Absolute Auto 6.7 x10*3/uL (2.0-8.3); Neutrophils Percent Auto 79.2 % (45-73); Platelet Count 282 X10*3/uL (160-400); Red Blood Count 4.28 X10*6/uL (4.20-5.50); Red Cell Distribution Width 13.6 % (11.0-16.0); White Blood Count 8.5 X10*3/uL (4.8-10.8)
[2023-02-08 06:07] LABS: Anion Gap 14 (12-20); Blood Urea Nitrogen 8 mg/dL (9-16); Calcium 9.6 mg/dL (8.4-10.2); Carbon Dioxide 21 mmol/L (22-29); Chloride 106 mmol/L (96-108); Creatinine Clr Calc Pharmacy 117.6; Estimated Glomerular Filt Rate > 60; Glucose Random 92 mg/dL (60-115); Potassium 4.3 mmol/L (3.3-5.1); Sodium 137 mmol/L (135-145)
[2023-02-08] MEDS: Famotidine/PF 20 MG/2 ML VIAL IVPUSH (07:19)
[2023-02-08 07:58] VITALS: BP 122/64; PULSE 77; RESP 18; TEMP 36.5; O2SAT 100
--- NOTE | 2023-02-08 09:41 | MHC.CM.PN ---
Patient discharged to home today self-care. She has arranged for a family member to provide transportation home.
--- NOTE | 2023-02-08 11:25 | HO.POSTANES ---
Post Anesthesia Evaluation Post Anesthesia Evaluation Date of Service: 02/08/23 Vital Signs: Vital Signs Temp Pulse Resp BP Pulse Ox O2 Del Method 02/08/23 07:58 97.7 F 77 18 122/64 100 Room Air 02/08/23 06:46 Room Air 02/08/23 03:36 97.2 F 71 14 110/60 98 Room Air 02/07/23 23:34 97 F 72 18 130/64 99 Room Air Anesthesia: General Endotracheal-GETA Mental Status: Awake Pain Control: Satisfactory Nausea/Vomiting: None Hydration: Adequate Anesthesia-Related Issues: No Anes. Related Issues
== END 2023-02-08 09:12 | disposition home or self-care (01) ==
LOC: HO.SSS 09:44 → HO.S3 12:08
PROVIDERS: Physician Assistant; PCP Internal Medicine; Visit Provider Surgery
PROC: (CPT 43845; principal; 2023-02-07 07:30)
DX: E66.01 Morbid (severe) obesity due to excess calories (principal); Z68.36 Body mass index [BMI] 36.0-36.9, adult; Z98.51 Tubal ligation status; K66.0 Peritoneal adhesions (postprocedural) (postinfection); I10 Essential (primary) hypertension; J45.909 Unspecified asthma, uncomplicated; K21.9 Gastro-esophageal reflux disease without esophagitis; K76.0 Fatty (change of) liver, not elsewhere classified; Z79.899 Other long term (current) drug therapy
CPT/HCPCS: 43775; 43659; 49329; 36415; 80048; 85014; 85018; 85025; 86850; 86900; 86901; 88307; 88342; A4649; C9088; C9145; J0131; J0690; J1100; J1170; J2250; J2371; J2405; J2795; J3010

== ENCOUNTER → 2023-02-07 05:57 | Outpatient (BNV) | payer OTHER, SELFPAY | PROVIDERS: PCP Internal Medicine; Visit Provider Surgery | DX: E66.01 Morbid (severe) obesity due to excess calories (principal); Z68.41 Body mass index [BMI] 40.0-44.9, adult; K66.0 Peritoneal adhesions (postprocedural) (postinfection) | CPT/HCPCS: 43659; 43775 ==

== ENCOUNTER 2023-02-14 13:52 | Outpatient (AMB) | payer OTHER, SELFPAY ==
--- NOTE | 2023-02-14 14:24 | MHC.OFFVISWM ---
Intake VS Expanded 02/14/23 14:31 Height 5 ft 3 in Weight 190 lb 12.8 oz BMI 33.8 BP 128/58 L Blood Pressure Location Rt brachial Blood Pressure Position Sitting Pulse 80 Pulse Source Pulse Oximeter Temp 98.7 F Temperature Source Temporal Artery Scan Pulse Oximetry 99 Oxygen Delivery Method Room Air Body Fat 80.0 Body Fat Percentage 42.0 Free Fat Mass 110.6 Muscle Mass 105.2 Visceral Mass 10.0 Water Mass 79.0 BMR 1,538 Intake Visit Reasons: (OV) 7 Days PO LSG 02/07/23 Allergies No Known Allergies Allergy (Verified 02/14/23 14:32) HPI HPI Comments History of Present Illness Details 47 yo female POD 7 s/p LSG on 02/07/23 darlene 3 celebrate 4 in 1 shakes 1 scoop each additional 18 oz fluids pos bm no sig pain PFSH Medical History (Updated 02/10/23 @ 00:03 by Gabriella Crooks) BMI 35.0-35.9,adult Asthma GERD (gastroesophageal reflux disease) Hypertension Morbid obesity Carpal tunnel syndrome Surgical History (Updated 02/14/23 @ 14:32 by Enedelia Laws CMA) S/P laparoscopic sleeve gastrectomy Hx of carpal tunnel repair Hx of tubal ligation H/O eye surgery Family History Father Hypertension FH: prostate cancer Mother Hypertension Breast cancer Raynaud disease Amputee, below knee Sister Hypertension Social History Household Members: Family Housing: House Are you a primary patient care representative to a significant other at home: No Do you presently have visiting nurse or other home services: No 75 years or older and lives alone: No Alcohol intake: never Patient Tobacco Use Status: Never used Tobacco service: No Physical Exam Vital Signs: Last Vital Signs Temp 98.7 F 02/14/23 14:31 Pulse 80 02/14/23 14:31 BP 128/58 L 02/14/23 14:31 Pulse Ox 99 02/14/23 14:31 Oxygen Delivery Method Room Air 02/14/23 14:31 BMI result Body Mass Index 33.8 GI Inspection: Yes incision (c/d/i) Assessment & Plan Assessment & Plan (1) S/P laparoscopic sleeve gastrectomy: Code(s): Z98.84 - Bariatric surgery status Plan: POD 7 s/p LSG on 02/07/[address] Cooper Weight loss prior to surgery was 26.5 pounds or 11.3% TBWL. Original weight on 10/12/22 was 232.8 pounds and op weight was 206.3 pounds. Be sure to text Dr Cooper exactly 1 week after surgery your weight from your home scale so he can adjust your meal plan. Continue meal plan until f/u w richard in 2 weeks May shower, no submersion in bath for another week Continue abdominal binder with activity and exercise for the next 2 weeks. Exercise prior to surgery was treadmill, stationary bike, may resume No abdominal exercises for 6 weeks post operatively Will be emailed link to post op video for review Reminded of the pace of drinking, 2 mL per minute, 1 oz/15 min. Coding Level of Care Code Global (49379) Diagnoses S/P laparoscopic sleeve gastrectomy Z98.84
[2023-02-14 14:31] VITALS: BP 128/58; PULSE 80; TEMP 37.1; O2SAT 99; BMI 33.8
== END 2023-02-14 14:53 | disposition home or self-care (01) ==
PROVIDERS: PCP Internal Medicine; Visit Provider Physician Assistant Surgical
DX: E66.9 Obesity, unspecified (principal); Z68.33 Body mass index [BMI] 33.0-33.9, adult; Z90.3 Acquired absence of stomach [part of]; Z98.84 Bariatric surgery status
CPT/HCPCS: 99024

== ENCOUNTER → 2023-02-14 13:52 | Outpatient (BNVA) | payer OTHER, SELFPAY | PROVIDERS: PCP Internal Medicine; Visit Provider Physician Assistant Surgical ==

== ENCOUNTER 2023-03-10 09:20 | Outpatient (AMB) | payer OTHER, SELFPAY ==
--- NOTE | 2023-03-10 09:25 | MHC.OFFVISWM ---
Intake VS Expanded 03/10/23 09:31 BP 130/61 Blood Pressure Location Rt brachial Blood Pressure Position Sitting Pulse 79 Pulse Source Pulse Oximeter Temp 97.9 F Temperature Source Tympanic Pulse Oximetry 93 Oxygen Delivery Method Room Air Height 5 ft 3 in Weight 183 lb 9.6 oz BMI 32.5 Body Fat % 37.5 Body Fat Mass 68.8 Fat Free Mass 114.6 Visceral Fat Rating 9.0 Body Water % 44.5 Body Water Mass 81.6 Muscle Mass/Score 109.0 Basal Metabolic Rate/Score 1,567 Intake Visit Reasons: (OV) PO LSG 02/07/23 Maintenance And Operations Supervisor Required: No Allergies No Known Allergies Allergy (Verified 03/10/23 09:29) Medication List - Last Reconciled 03/10/23 by MARCOS De albuterol sulfate 90 mcg/actuation 2 puffs inhalation Q6H PRN mecobalamin (vitamin B12) 500 mcg orally one per day; HPI HPI Comments History of Present Illness Details This?a?47?yo female who is s/p LSG without hiatal hernia repair on?02/07/23. Presents for 1 month post op visit. Weight today is 183.6 pounds, with a BMI of 32.5. There has been a 49.2 pound weight loss,(initial weight 232.8 pounds) since starting the program on 10/12/22 reflecting a 21.1% total body weight loss and a weight loss of 22.7 pounds since surgery (operative weight 206.3 pounds) reflecting a 11% TBWL since surgery. No complaints of nausea, emesis, abdominal pain or reflux. Reports difficulty w consttipation adn reflux worse at night with food. She has only been eating protein but cooking it with ppeppers and onions although not eating the peppers and onions. No longer taking sucralfate. Not doing the bar as she feels it does not sit well. Present meal plan includes: Celebrate 4 in 1 shake in 8 oz water, 1 scoop, 8-11, 2 scoops 12-2. meal 5 pm, 4 forks of eggs or chicken, Drinkin oz water, 4 oz gatorade zero, 16 oz shake ? Exercise routine includes: stationary bike, or home videos, daily around 300 calories. PFSH Medical History (Updated 03/10/23 @ 10:40 by MARCOS De) BMI 35.0-35.9,adult Asthma GERD (gastroesophageal reflux disease) Hypertension Morbid obesity Carpal tunnel syndrome Surgical History S/P laparoscopic sleeve gastrectomy Hx of carpal tunnel repair Hx of tubal ligation H/O eye surgery Family History Father Hypertension FH: prostate cancer Mother Hypertension Breast cancer Raynaud disease Amputee, below knee Sister Hypertension Social History Household Members: Family Housing: House Are you a primary skin care therapist to a significant other at home: No Do you presently have visiting nurse or other home services: No 75 years or older and lives alone: No Alcohol intake: never Patient Tobacco Use Status: Never used Tobacco service: No Physical Exam Vital Signs: Last Vital Signs Temp 97.9 F 03/10/23 09:31 Pulse 79 03/10/23 09:31 BP 130/61 03/10/23 09:31 Pulse Ox 93 03/10/23 09:31 Oxygen Delivery Method Room Air 03/10/23 09:31 BMI result Body Mass Index 32.5 GI Inspection: Yes incision (c/d/i) Assessment & Plan Assessment & Plan (1) Obesity: Code(s): E66.9 - Obesity, unspecified Plan: change meal plan to 2 celebrate 4 in 1 shakes 2 scoops each. Stop seasoning the food w peppers and onions. Try dark meat chicken (does not like fish) tolerating eggs RTC 3 weeks given my number to text (2) Constipation: Code(s): K59.00 - Constipation, unspecified Plan: senna 2 hs prn dulcolax ND if needed Medications: New sennosides (senna) 17.2 mg (2 x 8.6 mg) PO BEDTIME PRN 60 tabs 0RF constipation bisacodyl (Dulcolax (bisacodyl)) 10 mg ND DAILY PRN 12 ea 0RF constipation Refilled pantoprazole 40 mg PO DAILY 30 tabs 2RF K21.9 - Gastro-esophageal reflux disease without esophagitis Coding Level of Care Code Global (11806) Diagnoses Obesity E66.9 Constipation K59.00
[2023-03-10 09:31] VITALS: BP 130/61; PULSE 79; TEMP 36.6; O2SAT 93; BMI 32.5
== END 2023-03-10 10:41 | disposition home or self-care (01) ==
PROVIDERS: PCP Internal Medicine; Visit Provider Physician Assistant Surgical
DX: E66.9 Obesity, unspecified (principal); Z68.32 Body mass index [BMI] 32.0-32.9, adult; K59.00 Constipation, unspecified
CPT/HCPCS: 99024

== ENCOUNTER → 2023-03-10 09:20 | Outpatient (BNVA) | payer OTHER, SELFPAY | PROVIDERS: PCP Internal Medicine; Visit Provider Physician Assistant Surgical ==

== ENCOUNTER 2023-04-04 13:19 | Outpatient (AMB) | payer OTHER, SELFPAY ==
--- NOTE | 2023-04-04 13:24 | MHC.OFFVISWM ---
Intake VS Expanded 04/04/23 13:36 BP 133/64 Blood Pressure Location Rt brachial Blood Pressure Position Sitting Pulse 93 Pulse Source Pulse Oximeter Temp 96.7 F L Temperature Source Temporal Artery Scan Pulse Oximetry 100 Oxygen Delivery Method Room Air Height 5 ft 3 in Weight 172 lb 3.2 oz BMI 30.5 Body Fat % 34.7 Body Fat Mass 59.8 Fat Free Mass 112.4 Visceral Fat Rating 8.0 Body Water % 46.5 Body Water Mass 80.0 Muscle Mass/Score 106.8 Basal Metabolic Rate/Score 1,525 Intake Visit Reasons: (OV) PO LSG 02/07/23 Montessori Lead Teacher Required: No Allergies No Known Allergies Allergy (Verified 04/04/23 13:29) Medication List - Last Reconciled 04/04/23 by MARCOS De albuterol sulfate 90 mcg/actuation 2 puffs inhalation Q6H PRN bisacodyl (Dulcolax (bisacodyl)) 10 mg MN DAILY PRN pantoprazole 40 mg PO DAILY HPI HPI Comments History of Present Illness Details This?a?47?yo female who is s/p LSG without hiatal hernia repair on?02/07/23. Presents for 2 month post op visit. Weight today is 172.2 pounds, with a BMI of 30.5. There has been a 60.6 pound weight loss,(initial weight 232.8 pounds) since starting the program on 10/12/22 reflecting a 26% total body weight loss and a weight loss of 34.1 pounds since surgery (operative weight 206.3 pounds) reflecting a 16.5% TBWL since surgery. No complaints of nausea, emesis, abdominal pain or reflux. She has been using Dulcolax intermittently and has started fiber gummy Present meal plan includes: Shake, shake, meal or shake, meal, shake 2 celebrate 4 in 1 shakes 2 scoops each. in 8 oz water 4 forks protein and Drinkin oz ? Exercise routine includes: walking, treadmill, aerobics, daily around 325-350 calories. [facility] Medical History BMI 35.0-35.9,adult Asthma GERD (gastroesophageal reflux disease) Hypertension Morbid obesity Carpal tunnel syndrome Surgical History S/P laparoscopic sleeve gastrectomy Hx of carpal tunnel repair Hx of tubal ligation H/O eye surgery Family History Father Hypertension FH: prostate cancer Mother Hypertension Breast cancer Raynaud disease Amputee, below knee Sister Hypertension Social History Household Members: Family Housing: House Are you a primary critical care unit manager to a significant other at home: No Do you presently have visiting nurse or other home services: No 75 years or older and lives alone: No Alcohol intake: never Patient Tobacco Use Status: Never used Tobacco service: No Review of Systems Const All systems reviewed & are unremarkable except as noted in HPI and below Physical Exam GI Inspection: Yes incision (healing well) Assessment & Plan Assessment & Plan (1) S/P laparoscopic sleeve gastrectomy: Code(s): Z98.84 - Bariatric surgery status Plan: Continue current meal plan, add 3 for close of vegetables. Strongly encouraged her to increase fluid intake, discussing the implications of poor hydration. Continue exercise plan. She felt as though the pantoprazole is not working as well as the [id number] Prilosec and she was given instruction that she may switch to the previously used [id number] Prilosec. Return to clinic 1 month. Coding Level of Care Code Global (79814) Diagnoses S/P laparoscopic sleeve gastrectomy Z98.84
[2023-04-04 13:36] VITALS: BP 133/64; PULSE 93; TEMP 35.9; O2SAT 100; BMI 30.5
== END 2023-04-04 14:27 | disposition home or self-care (01) ==
PROVIDERS: PCP Internal Medicine; Visit Provider Physician Assistant Surgical
DX: E66.9 Obesity, unspecified (principal); Z68.30 Body mass index [BMI] 30.0-30.9, adult; Z90.3 Acquired absence of stomach [part of]; Z98.84 Bariatric surgery status
CPT/HCPCS: 99024

== ENCOUNTER → 2023-04-04 13:19 | Outpatient (BNVA) | payer OTHER, SELFPAY | PROVIDERS: PCP Internal Medicine; Visit Provider Physician Assistant Surgical | DX: K21.9 Gastro-esophageal reflux disease without esophagitis (principal) ==

== ENCOUNTER 2023-05-09 08:12 | Outpatient (AMB) | payer OTHER, SELFPAY ==
--- NOTE | 2023-05-09 08:21 | A.OFFVIS_ITS ---
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 Presents for 3 month post op visit. Weight today is 160.6 pounds, with a BMI of 28.4. There has been a 72.2 pound weight loss,(initial weight 232.8 pounds) since starting the program on 10/12/22 reflecting a 31% total body weight loss and a weight loss of 45.7 pounds since surgery (operative weight 206.3 pounds) reflecting a 22.1% TBWL since surgery. No complaints of nausea, emesis, abdominal pain or reflux. She has been using Dulcolax intermittently and has started fiber gummy States her goal is to lose another 10 pounds Present meal plan includes: Shake, shake, meal or shake, meal, shake 2 celebrate 4 in 1 shakes 2 scoops each. in 8 oz water 4 forks protein 3 forks veg Drinkin oz ? Exercise routine includes: PF walking, treadmill, online videos, 5 x per week 300 calories. [facility] Medical History BMI 35.0-35.9,adult Asthma GERD (gastroesophageal reflux disease) Hypertension Morbid obesity Carpal tunnel syndrome Surgical History Hx of colonoscopy S/P laparoscopic sleeve gastrectomy Hx of carpal tunnel repair Hx of tubal ligation H/O eye surgery Family History Father Hypertension FH: prostate cancer Mother Hypertension Breast cancer Raynaud disease Amputee, below knee Sister Hypertension Social History Household Members: Family Housing: House Are you a primary hospice care sales consultant to a significant other at home: No Do you presently have visiting nurse or other home services: No 75 years or older and lives alone: No Alcohol intake: never Patient Tobacco Use Status: Never used Tobacco service: No Review of Systems Const All systems reviewed & are unremarkable except as noted in HPI and below Physical Exam Const General: healthy appearing and no acute distress Resp Effort & Inspection: normal respiratory effort Auscultation: clear to auscultation bilaterally Cardio Rate: regular rate Rhythm: regular rhythm GI Auscultation: normal bowel sounds Extrem General: Yes normal to inspection Assessment & Plan Assessment & Plan (1) Overweight (BMI 25.0-29.9): Code(s): E66.3 - Overweight Plan: Patient wishes to continue current meal plan although she certainly may increase to 6 forks of protein in 6 forks vegetables. She may incorporate fresh fruit such as Dane's, kiwi, apples, oranges. Encouraged increased fluid slightly to 64 oz daily. Encouraged to add weightlifting and to change of her routine as well as to maintain a goal of 2000 calories per week burned in the gym. Return to clinic 4 weeks. (2) Constipation: Code(s): K59.00 - Constipation, unspecified Qualifiers: Constipation type: unspecified constipation type Qualified Code(s): K59.00 - Constipation, unspecified Plan: Resolved Coding Level of Care Code Est Pt Level 3 (69785) Diagnoses Overweight (BMI 25.0-29.9) E66.3 Constipation, unspecified constipation type K59.00 Constipation type: unspecified constipation type
[2023-05-09 08:28] VITALS: BP 135/63; PULSE 86; TEMP 36.7; O2SAT 100; BMI 28.4
== END 2023-05-09 08:51 | disposition home or self-care (01) ==
PROVIDERS: PCP Internal Medicine; Visit Provider Physician Assistant Surgical
DX: E66.3 Overweight (principal); Z68.28 Body mass index [BMI] 28.0-28.9, adult; Z90.3 Acquired absence of stomach [part of]; Z98.84 Bariatric surgery status
CPT/HCPCS: 99213

== ENCOUNTER → 2023-05-09 08:12 | Outpatient (BNVA) | payer OTHER, SELFPAY | PROVIDERS: PCP Internal Medicine; Visit Provider Physician Assistant Surgical | DX: K21.9 Gastro-esophageal reflux disease without esophagitis (principal) ==

== ENCOUNTER 2023-07-04 08:58 | Outpatient (AMB) | payer OTHER, SELFPAY ==
--- NOTE | 2023-07-04 08:22 | MHC.OFFVISWM ---
Intake VS Expanded 07/04/23 08:23 Height 5 ft 3 in Weight 153 lb 12.8 oz BMI 27.2 Body Fat % 23.7 Body Fat Mass 36.4 Fat Free Mass 117.6 Visceral Fat Rating 10 Body Water % 55.1 Body Water Mass 84.7 Muscle Mass/Score 111.6 Basal Metabolic Rate/Score 1,520 Intake Visit Reasons: VIDEO PO LSG 02/07/23 Sports Intern Required: No Allergies No Known Allergies Allergy (Verified 05/09/23 08:25) Medication List - Last Reconciled 07/04/23 by MARCOS De albuterol sulfate 90 mcg/actuation 2 puffs inhalation Q6H PRN bisacodyl (Dulcolax (bisacodyl)) 10 mg [place] DAILY PRN HPI HPI Comments History of Present Illness Details This?a?48?yo female who is s/p LSG without hiatal hernia repair on?02/07/23. Presents for 4.5 month post op visit. Weight today is 153.8 pounds, with a BMI of 27.2. There has been a 79 pound weight loss,(initial weight 232.8 pounds) since starting the program on 10/12/22 reflecting a 33.9% total body weight loss and a weight loss of 52.5 pounds since surgery (operative weight 206.3 pounds) reflecting a 25.4% TBWL since surgery. No complaints of nausea, emesis, abdominal pain or reflux. Her constipation has improved and she has been taking a stool softener daily. She had decreased her shake to one daily without advice. She tried a RTD Hexagram 49life 30 gm shake and wants to incorporate it. Patient states that she is noticed swelling in her hands and feet, seen by her primary care physician who ordered multiple lab tests and there may be a concern for possible rheumatoid. She has been referred to a specialist per her report. She does report that she has utilized prepared foods including deli meats over the last month or so as it is ?easy?. Present meal plan includes: Shake, shake, meal or shake, meal, shake 2 celebrate 4 in 1 shakes 2 scoops each. in 8 oz water wrap w lean ham and low sodium [place] cheese meal 4 forks protein 3 forks veg Drinkin oz ? Exercise routine includes: none in the last month due to swelling [facility] Medical History BMI 35.0-35.9,adult Asthma GERD (gastroesophageal reflux disease) Hypertension Morbid obesity Carpal tunnel syndrome Surgical History Hx of colonoscopy S/P laparoscopic sleeve gastrectomy Hx of carpal tunnel repair Hx of tubal ligation H/O eye surgery Family History Father Hypertension FH: prostate cancer Mother Hypertension Breast cancer Raynaud disease Amputee, below knee Sister Hypertension Social History Household Members: Family Housing: House Are you a primary nurse care manager to a significant other at home: No Do you presently have visiting nurse or other home services: No 75 years or older and lives alone: No Alcohol intake: never Patient Tobacco Use Status: Never used Tobacco service: No Assessment & Plan Assessment & Plan (1) Overweight (BMI 25.0-29.9): Code(s): E66.3 - Overweight Plan: Per patient request, add fair life ready to drink shake. New meal plan Two eggs scrambled with vegetables in the morning or celebrate 4 in 1 shake with 2 scoops in 10 oz of water. Meal consisting of 6 forks of protein and 6 of vegetables, x 2 Increase water intake to 64 oz daily. Encouraged to get bariatric multivitamin, fusion, daily. Return to clinic in office for her six-month follow-up where we will check blood work. Encouraged to text me in approximately 10 days with her progress. Telehealth Telehealth Location of provider rendering services: practice address Location of patient: address on file Patient Identification confirmed using: Name, : Yes Telehealth method: voice only Patient verbally consented to treatment: Yes Patient verbally consented to billing insurance company: Yes Patient informed of any privacy concerns related to visit: Yes Minutes spent on Phone/Video with Pt.: 18 Coding Level of Care Code Tele Est Pt Level 3 (02557) Diagnoses Overweight (BMI 25.0-29.9) E66.3 Time Spent (min) 25
[2023-07-04 08:23] VITALS: BMI 27.2
== END 2023-07-04 09:05 | disposition home or self-care (01) ==
LOC: HO.HBS 08:58
PROVIDERS: PCP Internal Medicine; Visit Provider Physician Assistant Surgical
DX: E66.3 Overweight (principal)
CPT/HCPCS: 99213

== ENCOUNTER → 2023-07-04 08:58 | Outpatient (BNVA) | payer OTHER, SELFPAY | PROVIDERS: PCP Internal Medicine; Visit Provider Physician Assistant Surgical ==

== ENCOUNTER 2023-08-07 10:24 | Outpatient (AMB) | payer OTHER, SELFPAY ==
--- NOTE | 2023-08-07 10:26 | A.OFFVIS_ITS ---
Intake VS Expanded 08/07/23 10:32 BP 130/61 Blood Pressure Location Rt brachial Blood Pressure Position Sitting Pulse 80 Pulse Source Pulse Oximeter Temp 97.8 F Temperature Source Tympanic Pulse Oximetry 100 Oxygen Delivery Method Room Air Height 5 ft 3 in Weight 151 lb 6.4 oz BMI 26.8 Body Fat % 29.2 Body Fat Mass 44.0 Fat Free Mass 107.2 Visceral Fat Rating 6.0 Body Water % 50.4 Body Water Mass 76.2 Muscle Mass/Score 101.6 Basal Metabolic Rate/Score 1,433 Intake Visit Reasons: ov PO LSG 02/07/23 Testing Coordinator Required: No Allergies No Known Allergies Allergy (Verified 08/07/23 10:35) Medication List - Last Reconciled 08/07/23 by MARCOS De albuterol sulfate 90 mcg/actuation 2 puffs inhalation Q6H PRN bisacodyl (Dulcolax (bisacodyl)) 10 mg [place] DAILY PRN clotrimazole 1% (Antifungal (clotrimazole)) 1 appl topical BID HPI HPI Comments History of Present Illness Details This?a?48?yo female who is s/p LSG without hiatal hernia repair on?02/07/23. Presents for 6 month post op visit. Weight today is 151.4 pounds, with a BMI of 26.8. There has been a 81.4 pound weight loss,(initial weight 232.8 pounds) since starting the program on 10/12/22 reflecting a 34.9% total body weight loss and a weight loss of 54.9 pounds since surgery (operative weight 206.3 pounds) reflecting a 26.6% TBWL since surgery. No complaints of nausea, emesis, abdominal pain or reflux. Her constipation has improved and she has been taking a stool softener daily. taking bariatric MVI-Fusion She complains of increased odor, rash and irritation of the skin underneath her abdominal pannus. She has not used any antifungals requiring a prescription, however she does apply deodorant on a daily basis. She describes the rash as painful, irritating, itchy and odorous. It has interfered with her activities of daily living in the sense that it requires her to have increased hygiene, where additional clothing to act as a barrier and additional showering. This is especially worse with increased exercise and warm weather Present meal plan includes: one eggs scrambled with vegetables in the morning or celebrate 4 in 1 shake with 2 scoops in 10 oz of water. More consistently fairlife 30 gm Meal consisting of 6 forks of protein and 6 of vegetables, x 2 Drinking 72 oz ? Exercise routine includes: walking outside daily 3 x per day, stationary bike 2 x per week, 45-60 min not tracking calories. PFSH Medical History BMI 35.0-35.9,adult Asthma GERD (gastroesophageal reflux disease) Hypertension Morbid obesity Carpal tunnel syndrome Surgical History Hx of colonoscopy S/P laparoscopic sleeve gastrectomy Hx of carpal tunnel repair Hx of tubal ligation H/O eye surgery Family History Father Hypertension FH: prostate cancer Mother Hypertension Breast cancer Raynaud disease Amputee, below knee Sister Hypertension Social History Household Members: Family Housing: House Are you a primary patient care representative to a significant other at home: No Do you presently have visiting nurse or other home services: No 75 years or older and lives alone: No Alcohol intake: never Patient Tobacco Use Status: Never used Tobacco service: No Physical Exam Vital Signs: Last Vital Signs Temp 97.8 F 08/07/23 10:32 Pulse 80 08/07/23 10:32 BP 130/61 08/07/23 10:32 Pulse Ox 100 08/07/23 10:32 Oxygen Delivery Method Room Air 08/07/23 10:32 BMI result Body Mass Index 26.8 Const General: healthy appearing and no acute distress Resp Effort & Inspection: normal respiratory effort Auscultation: clear to auscultation bilaterally Cardio Rate: regular rate Rhythm: regular rhythm GI Auscultation: normal bowel sounds Skin Other: Grade 2 pannus with noted increased moisture without current rash. Extrem General: Yes normal to inspection Assessment & Plan Assessment & Plan (1) Overweight (BMI 25.0-29.9): Code(s): E66.3 - Overweight Plan: Recommend increasing exercise and not skipping lunch. In order to do so she can take her fairly ready to drink shake and split it in half, half in the morning and half at lunch, meal at night with 6 forks of protein and 6 forks of vegetables. Check six-month labs. Return to the office in 4 weeks. (2) Excess skin: Code(s): L98.7 - Excessive and redundant skin and subcutaneous tissue Plan: Add clotrimazole as needed Orders: Orders Insulin Today E50.9 - Vitamin A deficiency, unspecified, E53.8 - Deficiency of other specified B group vitamins, E66.3 - Overweight, I10 - Essential (primary) hypertension, K76.0 - Fatty (change of) liver, not elsewhere classified Complete Blood Count Auto Diff Today E50.9 - Vitamin A deficiency, unspecified, E53.8 - Deficiency of other specified B group vitamins, E66.3 - Overweight, I10 - Essential (primary) hypertension, K76.0 - Fatty (change of) liver, not elsewhere classified Vitamin B12 and Folate Today E50.9 - Vitamin A deficiency, unspecified, E53.8 - Deficiency of other specified B group vitamins, E66.3 - Overweight, I10 - Essential (primary) hypertension, K76.0 - Fatty (change of) liver, not elsewhere classified Zinc Today E50.9 - Vitamin A deficiency, unspecified, E53.8 - Deficiency of other specified B group vitamins, E66.3 - Overweight, I10 - Essential (primary) hypertension, K76.0 - Fatty (change of) liver, not elsewhere classified Vitamin B1 Today E50.9 - Vitamin A deficiency, unspecified, E53.8 - Deficiency of other specified B group vitamins, E66.3 - Overweight, I10 - Essential (primary) hypertension, K76.0 - Fatty (change of) liver, not elsewhere classified Vitamin A Today E50.9 - Vitamin A deficiency, unspecified, E53.8 - Deficiency of other specified B group vitamins, E66.3 - Overweight, I10 - Essential (primary) hypertension, K76.0 - Fatty (change of) liver, not elsewhere classified TSH reflex Free T4 Today E50.9 - Vitamin A deficiency, unspecified, E53.8 - Deficiency of other specified B group vitamins, E66.3 - Overweight, I10 - Essential (primary) hypertension, K76.0 - Fatty (change of) liver, not elsewhere classified Hemoglobin A1c Today E50.9 - Vitamin A deficiency, unspecified, E53.8 - Deficiency of other specified B group vitamins, E66.3 - Overweight, I10 - Essential (primary) hypertension, K76.0 - Fatty (change of) liver, not elsewhere classified Lipid Panel Today E50.9 - Vitamin A deficiency, unspecified, E53.8 - Deficiency of other specified B group vitamins, E66.3 - Overweight, I10 - Essential (primary) hypertension, K76.0 - Fatty (change of) liver, not elsewhere classified IRON PROFILE Today E50.9 - Vitamin A deficiency, unspecified, E53.8 - Deficiency of other specified B group vitamins, E66.3 - Overweight, I10 - Essential (primary) hypertension, K76.0 - Fatty (change of) liver, not elsewhere classif ied C Reactive Protein Today E50.9 - Vitamin A deficiency, unspecified, E53.8 - Deficiency of other specified B group vitamins, E66.3 - Overweight, I10 - Essential (primary) hypertension, K76.0 - Fatty (change of) liver, not elsewhere classified Ferritin Today E50.9 - Vitamin A deficiency, unspecified, E53.8 - Deficiency of other specified B group vitamins, E66.3 - Overweight, I10 - Essential (primary) hypertension, K76.0 - Fatty (change of) liver, not elsewhere classified Vitamin D 25-OH Total Today E50.9 - Vitamin A deficiency, unspecified, E53.8 - Deficiency of other specified B group vitamins, E66.3 - Overweight, I10 - Essential (primary) hypertension, K76.0 - Fatty (change of) liver, not elsewhere classified Basic Metabolic Panel Today E50.9 - Vitamin A deficiency, unspecified, E53.8 - Deficiency of other specified B group vitamins, E66.3 - Overweight, I10 - Essential (primary) hypertension, K76.0 - Fatty (change of) liver, not elsewhere classified Medications: New clotrimazole 1% (Antifungal (clotrimazole)) 1 appl topical BID 45 grams 2RF Coding Level of Care Code Est Pt Level 3 (34114) Diagnoses Overweight (BMI 25.0-29.9) E66.3 Excess skin L98.7
[2023-08-07 10:32] VITALS: BP 130/61; PULSE 80; TEMP 36.6; O2SAT 100; BMI 26.8
== END 2023-08-07 11:35 | disposition home or self-care (01) ==
PROVIDERS: PCP Internal Medicine; Visit Provider Physician Assistant Surgical
DX: E66.3 Overweight (principal); Z68.26 Body mass index [BMI] 26.0-26.9, adult; Z90.3 Acquired absence of stomach [part of]; L98.7 Excessive and redundant skin and subcutaneous tissue
CPT/HCPCS: 99213

== ENCOUNTER → 2023-08-07 10:24 | Outpatient (BNVA) | payer OTHER, SELFPAY | PROVIDERS: PCP Internal Medicine; Visit Provider Physician Assistant Surgical ==

== ENCOUNTER 2023-08-31 09:51 | Outpatient (REF) | payer OTHER, SELFPAY ==
[2023-08-31 10:04] LABS: MANUAL DIFF FLAG NO
[2023-08-31 11:03] LABS: Basophils Percent Auto 0.5 % (0-2); Eosinophils Absolute Auto 0.1 X10*3/uL (0.0-0.4); Hematocrit 34.2 % (37.0-47.0); Hemoglobin 11.2 g/dl (12.0-16.0); Imm Gran Abs Auto 0.01 X10*3/uL (0.00-0.03); Imm Gran Pct Auto 0.2 % (0.0-0.4); Lymphocytes Absolute Auto 1.8 X10*3/uL (1.2-4.9); Mean Corpuscular HGB Conc 32.7 g/dl (31.0-35.0); Mean Corpuscular Hemoglobin 26.7 pg (27.0-33.0); Mean Corpuscular Volume 81.4 fL (80.0-98.0); Mean Platelet Volume 10.3 fL (9.4-12.3); Monocytes Absolute Auto 0.4 X10*3/uL (0.1-1.2); Monocytes Percent Auto 7.3 % (2-11); Neutrophils Absolute Auto 3.5 x10*3/uL (2.0-8.3); Platelet Count 279 X10*3/uL (160-400); Red Cell Distribution Width 13.6 % (11.0-16.0); White Blood Count 5.9 X10*3/uL (4.8-10.8)
[2023-08-31 11:31] LABS: Estimated Average Glucose 108 mg/dL; Hemoglobin A1c % 5.4 % (<6.0)
[2023-08-31 12:01] LABS: Anion Gap 11 (12-20); Blood Urea Nitrogen 13 mg/dL (9-16); C Reactive Protein 0.99 mg/dL (< or = 0.50); Calcium 9.6 mg/dL (8.4-10.2); Carbon Dioxide 30 mmol/L (22-29); Chloride 103 mmol/L (96-108); Cholesterol 208 mg/dL (<200); Estimated Glomerular Filt Rate > 60; Glucose Random 83 mg/dL (60-115); HDL Cholesterol 55 mg/dL (>40); Iron 43 mcg/dL (30-160); LDL Cholesterol Calculated 133 mg/dL (<100); Percent Iron Saturation 16 % (15-50); Potassium 3.9 mmol/L (3.3-5.1); Sodium 140 mmol/L (135-145); Total Iron Binding Capacity 271 mcg/dL (228-428); Triglycerides 100 mg/dL (<150); Unsaturated Iron Binding 228 ug/dL
[2023-08-31 12:03] LABS: Ferritin 321 ng/mL (10-250); Insulin 6 uU/mL (2-29); TSH reflex Free T4 1.05 uIU/mL (0.32-4.0); Vitamin D 25-OH Total 35.3 ng/mL (>30)
[2023-08-31 12:30] LABS: Folate 9.2 ng/mL (> or = 4.0); Vitamin B12 401 pg/mL (200-900)
[2023-09-03 12:53] LABS: Zinc 71 mcg/dL (60-130)
[2023-09-06 01:13] LABS: Vitamin A 30 mcg/dL (38-98)
[2023-09-07 06:29] LABS: Vitamin B1 25 nmol/L (8-30)
== END 2023-08-31 09:52 | disposition home or self-care (01) ==
LOC: HO.LAB 09:51
PROVIDERS: PCP Internal Medicine; Visit Provider Physician Assistant Surgical
DX: E66.3 Overweight (principal); K76.0 Fatty (change of) liver, not elsewhere classified; E53.8 Deficiency of other specified B group vitamins; E50.9 Vitamin A deficiency, unspecified; I10 Essential (primary) hypertension
CPT/HCPCS: 36415; 80048; 80061; 82306; 82607; 82728; 82746; 83036; 83525; 83540; 84425; 84443; 84590; 84630; 85025; 86140

== ENCOUNTER 2023-09-10 08:30 | Emergency (ER) | payer OTHER, SELFPAY ==
--- NOTE | ~2023-09-10 | CT_ITS ---
EXAMINATION: CT CERVICAL SPINE WITHOUT CONTRAST CLINICAL INFORMATION: Midline tenderness. Right upper extremity pain. COMPARISON: No relevant prior imaging. TECHNIQUE: Thread Weaver images were obtained. CT imaging of the cervical spine was performed without contrast. Data was reformatted into multiplanar images at the acquisition workstation. This CT examination was performed using dose optimization techniques as appropriate, variously including the following: *Automated exposure control *Adjustment of mA and/or kV according to patient size (this includes techniques or standardized protocols for targeted exams where dose is matched to indication/reason for exam; i.e. extremities or head) *Use of iterative reconstruction technique DLP: 339 mGy-cm FINDINGS: Alignment is normal. Vertebral heights are preserved. No acute fracture. No abnormal prevertebral soft tissue swelling. There is loss of intervertebral disc height with associated sclerotic degenerative endplate changes and hypertrophic disc osteophyte spurring at multiple levels. Grossly no spinal canal compromise. There is a right foraminal soft disc protrusion at C4-C5 that likely causes compression of the right C5 nerve root. Uncovertebral joint spurring causes mild neuroforaminal encroachment at multiple additional levels. Incidentally there are bilateral cervical ribs. Visualized soft tissues of the neck are normal. Lung apices are clear. Limited visualization of intracranial anatomy reveals no abnormal finding. CT/CT cervical spine wo IV con IMPRESSION: There is multilevel degenerative spondylosis of the cervical spine. A right foraminal disc protrusion at C4-C5 likely causes compression of the right C5 nerve root. A dedicated cervical spine MRI can be obtained for better anatomic characterization of canal and foraminal patency. No acute fracture and no spinal subluxation. Incidentally there are bilateral cervical ribs.
[2023-09-10 08:43] VITALS: BP 121/74; PULSE 75; RESP 18; TEMP 37; O2SAT 100; BMI 25.9
[2023-09-10 09:09] LABS: MANUAL DIFF FLAG NO
[2023-09-10 09:14] LABS: Basophils Percent Auto 0.5 % (0-2); Eosinophils Absolute Auto 0.1 X10*3/uL (0.0-0.4); Eosinophils Percent Auto 1.9 % (0-4); Hematocrit 31.7 % (37.0-47.0); Hemoglobin 10.4 g/dl (12.0-16.0); Imm Gran Abs Auto 0.02 X10*3/uL (0.00-0.03); Imm Gran Pct Auto 0.3 % (0.0-0.4); Lymphocytes Absolute Auto 1.5 X10*3/uL (1.2-4.9); Lymphocytes Percent Auto 23.7 % (20-40); Mean Corpuscular HGB Conc 32.8 g/dl (31.0-35.0); Mean Corpuscular Hemoglobin 27.1 pg (27.0-33.0); Mean Corpuscular Volume 82.6 fL (80.0-98.0); Mean Platelet Volume 9.7 fL (9.4-12.3); Monocytes Absolute Auto 0.5 X10*3/uL (0.1-1.2); Monocytes Percent Auto 7.9 % (2-11); Neutrophils Absolute Auto 4.2 x10*3/uL (2.0-8.3); Neutrophils Percent Auto 65.7 % (45-73); Platelet Count 290 X10*3/uL (160-400); Red Blood Count 3.84 X10*6/uL (4.20-5.50); Red Cell Distribution Width 13.7 % (11.0-16.0); White Blood Count 6.3 X10*3/uL (4.8-10.8)
--- NOTE | 2023-09-10 09:39 | PC.NURSE ---
Patient reports right sided neck and arm pain that started x 2 days ago and has gotten worse. Bilateral hands swollen , right more than left. Reports stiff neck but no pain right arm. Reports slight headache and has had a lazy eye on her right side her whole life. Denies chest pain, reports nausea but not vomiting
--- NOTE | 2023-09-10 10:01 | ED.EXTPRO ---
HPI - Extremity Problem General Chief complaint: Extremity Injury, Upper Stated complaint: R ARM PAIN Time Seen by Provider: 09/10/23 10:01 Source: patient Mode of arrival: ambulatory Limitations: no limitations History of Present Illness HPI Narrative: Patient is a 48-year-old right hand dominant female with history of laparoscopic sleeve gastrectomy, HTN, asthma, GERD, liver steatosis presenting to the emergency department with complaint of neck pain radiating down right arm for the past 2 days. She denies fall or other trauma. She denies any recent heavy lifting or other strenuous activity. Feels as though both hands are swollen. Complains of tingling to all fingers of right hand. She has not taken any [id number] medications for her symptoms. She denies personal or family history of blood clots. She is not on any OCPs or hormones. MD Complaint: extremity pain Onset (ago): day(s) Pain Consistency: constant Location: right Severity scale (1-10): 10 Quality: burning Radiation: distal Relieving factors: nothing Associated symptoms: denies other symptoms Related Data Home Medications ?Medication ?Instructions ?Recorded ?Confirmed albuterol sulfate 90 mcg/actuation 2 puff inhalation Q6H PRN 10/10/22 08/07/23 aerosol inhaler Shortness Of Breath Or Wheezing Previous Rx's ?Medication ?Instructions ?Recorded bisacodyl 10 mg rectal suppository 10 mg ME DAILY PRN constipation 03/10/23 (Dulcolax (bisacodyl)) #12 ea clotrimazole 1 % topical cream 1 appl topical BID #45 grams 08/07/23 (Antifungal (clotrimazole)) vitamin A palmitate 3,000 mcg 3,000 mcg PO DAILY 90 days #90 caps 09/06/23 (10,000 unit) capsule diclofenac sodium 1 % topical gel 2 g topical QID #100 grams 09/10/23 Allergies Allergy/AdvReac Type Severity Reaction Status Date / Time No Known Allergies Allergy Verified 09/10/23 08:48 Review of Systems Review of Systems: As per HPI. Yes all other systems are reviewed and are negative Constitutional: Constitutional: Reports as per HPI [facility] Past Medical History Medical History BMI 35.0-35.9,adult Asthma GERD (gastroesophageal reflux disease) Hypertension Morbid obesity Carpal tunnel syndrome Surgical History Hx of colonoscopy S/P laparoscopic sleeve gastrectomy Hx of carpal tunnel repair Hx of tubal ligation H/O eye surgery Family History Family History Father Hypertension FH: prostate cancer Mother Hypertension Breast cancer Raynaud disease Amputee, below knee Sister Hypertension Social History Social History Household Members: Family Housing: House Are you a primary personal care service provider to a significant other at home: No Do you presently have visiting nurse or other home services: No Alcohol intake: never Patient Tobacco Use Status: Never used Tobacco Smoked in Last 30 Days: No Use of substances other than those prescribed or required for medical reasons: No Advance Directives: No Advance Directives Information Provided: No service: No Physical Exam Vital Signs: Vital Signs: Last Vital Signs Temp 98.6 F 09/10/23 08:43 Pulse 75 09/10/23 08:43 Resp 18 09/10/23 08:43 BP 121/74 09/10/23 08:43 Pulse Ox 100 09/10/23 08:43 O2 Del Method Room Air 09/10/23 08:43 BMI result Body Mass Index 25.9 Vital signs have been reviewed and appear to be correct. Blood pressure normal. Heart rate normal. Respiratory rate normal. Temperature normal. Oxygen saturation normal. Const: General: cooperative, healthy appearing and no acute distress Orientation/consciousness: oriented to person, oriented to place, oriented to time and patient oriented x3 Limitations: no limitations HEENT: Head: Yes normocephalic and Yes atraumatic Ears: external ears normal General nose exam: Normal external nose present Face and sinus: Yes face symmetric Mouth: oropharynx normal and moist mucous membranes Throat: Yes uvula midline Eyes: Pupils: Equal, round and reactive pupils present Neck: Neck: Yes normal visual inspection, Yes no meningeal signs and Yes supple Resp: Effort & Inspection: normal respiratory effort and able to speak in complete sentences Auscultation: clear to auscultation bilaterally Cardio: Rate: regular rate Rhythm: regular rhythm Heart sounds: S1 normal heart sound present and S2 normal heart sound present GI: Palpation (GI): Soft to palpation and nontender Auscultation: normoactive bowel sounds : General: Yes no CVA tenderness Back/Spine/Pelvis: Back: no CVA tenderness Cervical Spine: normal cervical lordosis, cervical muscular tenderness, pain with cervical ROM, Cervical spine tenderness and No step off deformity Thoracic/Lumbar Spine: thoracic and lumbar spine normal to inspection, thoraco-lumbar ROM normal, No pain with thoraco-lumbar ROM, No thoracic spinal tenderness and No lumbar spinal tenderness Skin: General skin exam: elasticity normal and turgor normal Neuro: General: oriented to person, oriented to place, oriented to time, patient oriented x3, tone normal, moves all extremities, Normal light touch and pain sensation, no meningeal signs, no focal motor deficits, CN's II-XI intact bilaterally and deep tendon reflexes 2+ bilaterally Cranial nerves: Yes Equal, round and reactive pupils present Cognition (Neuro): normal cognition Motor exam (neuro): 5/5 motor strength present throughout and Normal motor muscle tone present throughout Extrem: General: Yes full ROM, Yes no pedal edema and Yes no calf tenderness Right upper extremity: shoulder/upper arm Details: normal to inspection and tenderness (trapezius), wrist Details: normal vascular exam and Extremity exam: right hand Details: normal to inspection, normal ROM of fingers and swelling (very slight diffuse swelling) Left upper extremity: hand Details: vascular exam Details: radial pulse present, normal ROM of fingers and swelling (very slight diffuse swelling) Psych: Mental Status: mental status grossly normal Affect: normal affect Thought process: Normal thought process present Medications Administered Discontinued Medications Generic Name Dose Route Start Last Admin Trade Name Jean Marieq PRN Reason Stop Dose Admin Ketorolac Tromethamine 30 mg 09/10/23 10:05 09/10/23 10:25 Ketorolac Tromethamine 30 Mg/Ml Vial IM 09/10/23 10:06 30 mg ONCE ONE Administration Methylprednisolone Sodium Succinate 60 mg 09/10/23 10:08 09/10/23 10:26 Methylprednisolone Sod Succ 125 Mg/2 Ml Vial IM 09/10/23 10:09 60 mg ONCE ONE Administration Medical Decision Making Medical Decision Making [facility] Narrative: Patient is a 48-year-old right hand dominant female with history of laparoscopic sleeve gastrectomy, HTN, asthma, GERD, liver steatosis presenting to the emergency department with complaint of neck pain radiating down right arm for the past 2 days. On exam patient is awake, A+Ox3, VS WNL, afebrile, normal neurological exam without focal deficits, physical exam findings as above. Given reported symptoms and physical exam findings, initial differential includes cervical muscle strain, cervical radiculopathy. Do not suspect DVT, Wells 0. Labs notable for chronic anemia, otherwise unremarkable. CT notable for multilevel degenerative spondylosis with right foraminal disc protrusion at C4/5 with likely compression of C5 nerve root. My interpretation is in agreement with the radiologist's interpretation. Patient medicated with IM Toradol and IM Solu-Medrol in the emergency department as she has history of sleeve gastrectomy and can not take p.o. NSAIDs or steroids. Will discharge patient home with prescription for diclofenac gel, advised her to use Tylenol every 6 hours as needed for pain, ice intermittently to affected area. Will refer to Dr. Mills for further evaluation and management. Instructed patient to follow-up with primary care provider. Return precautions discussed at bedside. Patient verbalized understanding of and agreement with plan. Differential Diagnosis Differential Diagnoses: The differential diagnosis associated with the presentation includes As per [facility] Admission/Observation Consideration of admission/observation: Escalation of care including admission/observation considered Patient would have been admitted to the hospital had their work up had any findings where hospital admission was appropriate and their clinical presentation warranted hospital admission. Lab Data [facility] Lab Attestation statement: I reviewed the patient's lab results. As per [facility] 09/10/23 09:05 09/10/23 09:05 Labs: Lab Results 09/10/23 Range/Units 09:05 WBC 6.3 (4.8-10.8) X10*3/uL RBC 3.84 L (4.20-5.50) X10*6/uL Hgb 10.4 L (12.0-16.0) g/dl Hct 31.7 L (37.0-47.0) % MCV 82.6 (80.0-98.0) fL MCH 27.1 (27.0-33.0) pg MCHC 32.8 (31.0-35.0) g/dl RDW 13.7 (11.0-16.0) % Plt Count 290 (160-400) X10*3/uL MPV 9.7 (9.4-12.3) fL Immature Gran % (Auto) 0.3 (0.0-0.4) % Neut % (Auto) 65.7 (45-73) % Lymph % (Auto) 23.7 (20-40) % [facility] % (Auto) 7.9 (2-11) % Eos % (Auto) 1.9 (0-4) % Baso % (Auto) 0.5 (0-2) % Lymph # (Auto) 1.5 (1.2-4.9) X10*3/uL [facility] # (Auto) 0.5 (0.1-1.2) X10*3/uL Eos # (Auto) 0.1 (0.0-0.4) X10*3/uL Baso # (Auto) 0.0 (0.0-0.2) X10*3/uL Abs Immat Gran (auto) 0.02 (0.00-0.03) X10*3/uL Absolute Neuts (auto) 4.2 (2.0-8.3) x10*3/uL Absolute Nucleated RBC 0.000 (0.0-0.012) X10*3/uL Nucleated RBC % (auto) 0.0 (0.0-0.2) /100WBC Sodium 139 (135-145) mmol/L Potassium 4.3 (3.3-5.1) mmol/L Chloride 106 (96-108) mmol/L Carbon Dioxide 26 (22-29) mmol/L Anion Gap 11 L (12-20) BUN 12 (9-16) mg/dL Creatinine 0.60 (0.5-1.4) mg/dL Estim Creat Clear Calc 106.6 Estimated GFR > 60 Random Glucose 78 (60-115) mg/dL Calcium 9.3 (8.4-10.2) mg/dL Total Bilirubin 0.3 (0.0-1.0) mg/dL AST 16 (5-31) U/L ALT 11 (0-31) U/L Alkaline Phosphatase 86 (39-117) U/L Total Protein 7.1 (6.5-8.0) g/dL Albumin 3.5 (3.5-5.0) g/dL Independent Interpretation I performed an independent interpretation of an: CT Scan Interpretation: CT c-spine shows multilevel degenerative spondylosis with right foraminal disc protrusion at C4/5 with likely compression of C5 nerve root. Radiology Impression Discussion of test interpretation with radiology: I have reviewed the radiologist's reading. Radiologist Impression: CT/CT cervical spine wo IV con IMPRESSION: There is multilevel degenerative spondylosis of the cervical spine. A right foraminal disc protrusion at C4-C5 likely causes compression of the right C5 nerve root. A dedicated cervical spine MRI can be obtained for better anatomic characterization of canal and foraminal patency. No acute fracture and no spinal subluxation. Incidentally there are bilateral cervical ribs. External Record Review External record reviewed: Inpatient record, Office record and Outpatient record Prescription Management I considered prescription management with: Pain Medication Discharge Plan Discharge Clinical Impression: Cervical radiculopathy, Cervical spondylosis Patient Disposition: Home, Self-Care Instructions: Cervical Radiculopathy (ED), Chronic Neck Pain (DC) Additional Instructions: You were evaluated in the emergency department with complaint of neck, shoulder and arm pain. Your imaging showed degenerative disease and a disc protrusion at C4/5 which is compressing the nerve. We recommend taking 650mg Tylenol every 6 hours as needed for pain. You are being prescribed topical pain relief gel which you can use up to 4 times daily. You should apply ice to the area for 10-15 minutes at a time several times daily, do not apply ice directly the skin. You are being referred to Dr. Mills for further evaluation and management of your symptoms. Please call the office to schedule an appointment. Return to the emergency department if you develop worsening neck pain or stiffness, new weakness, numbness, or tingling to your arm, severe headaches, or any other concerning symptoms. Prescriptions: New diclofenac sodium 1 % gel 2 g topical QID Qty: 100 0RF Rx Instructions: Apply to affected area No Action vitamin A palmitate 3,000 mcg (10,000 unit) capsule 3,000 mcg PO DAILY 90 Days Qty: 90 0RF albuterol sulfate 90 mcg/actuation HFA aerosol inhaler 2 puff inhalation Q6H PRN (Reason: Shortness Of Breath Or Wheezing) clotrimazole [Antifungal (clotrimazole)] 1 % cream 1 appl topical BID Qty: 45 2RF bisacodyl [Dulcolax (bisacodyl)] 10 mg suppository 10 mg ME DAILY PRN (Reason: constipation) Qty: 12 0RF Referrals: Bryce Mills MD, PhD [Physician] - Stand Alone Forms: Work/School Release Print Language: Danish
[2023-09-10] MEDS: Ketorolac Tromethamine 30 MG/ML VIAL IM (10:25)
[2023-09-10] MEDS: methylPREDNISolone Sod Succ 125 MG/2 ML VIAL 60 MG IM (10:26)
[2023-09-10 12:54] LABS: Alanine Aminotransferase 11 U/L (0-31); Albumin Level 3.5 g/dL (3.5-5.0); Alkaline Phosphatase 86 U/L (39-117); Anion Gap 11 (12-20); Aspartate Amino Transferase 16 U/L (5-31); Bilirubin Total 0.3 mg/dL (0.0-1.0); Blood Urea Nitrogen 12 mg/dL (9-16); Calcium 9.3 mg/dL (8.4-10.2); Carbon Dioxide 26 mmol/L (22-29); Chloride 106 mmol/L (96-108); Creatinine Clr Calc Pharmacy 106.6; Estimated Glomerular Filt Rate > 60; Glucose Random 78 mg/dL (60-115); Potassium 4.3 mmol/L (3.3-5.1); Sodium 139 mmol/L (135-145); Total Protein 7.1 g/dL (6.5-8.0)
[2023-09-10 13:16] VITALS: BP 120/68; PULSE 77; RESP 18; TEMP 37.1; O2SAT 100
== END 2023-09-10 13:27 | disposition home or self-care (01) ==
PROVIDERS: Emergency Provider Student in an Organized Health Care Education/Training Program; PCP Internal Medicine
DX: M54.12 Radiculopathy, cervical region (principal); M54.2 Cervicalgia; Z79.899 Other long term (current) drug therapy
CPT/HCPCS: 36415; 72125; 80053; 85025; 96372; 99284; J1885; J2919; J2930

== ENCOUNTER 2023-09-19 13:06 | Outpatient (AMB) | payer OTHER, SELFPAY ==
--- NOTE | 2023-09-19 13:10 | HO.SPINEOV ---
Intake Intake Visit Reasons: ED follow up Intake Note: Ms. Anguiano is here today for ED F/u neck pain. [employer] Required: No Allergies No Known Allergies Allergy (Verified 09/19/23 13:13) Assessment & Plan Assessment & Plan (1) Cervical radiculopathy: Code(s): M54.12 - Radiculopathy, cervical region Plan Mrs Cristian Tyson is following up in the office today. She is a 48-year-old female who was in the emergency room will week or so ago with right arm pain. She tells me that about a month ago or so she awoke with some neck discomfort that started going down her arm but over the progress of a few days it became severe and radiates all the way down into her hand into her middle finger. She feels weakness of her hand, limitations with range of motion of her neck as well as tingling. She had some Toradol when she was in the emergency room and has been taking Tylenol at home. No conservative management yet. She is here today to follow-up because the CT scan in the emergency room showed possibly some compression on the right at C4-5. Denies any myelopathic symptoms. PMH: History of a sleeve gastrectomy, tubal ligation, eye surgery for lid ptosis, carpal tunnel Social hx: She has not smoke, drink use any recreational drugs Medications: Tylenol Allergies: None Physical exam: She is awake alert oriented, she appears uncomfortable having difficulty moving her arm or lifting it. Range of motion is limited. Strength in her hand is about 4- out of 5. Triceps and biceps strength are normal. Reflexes are normal in the bilateral upper extremities, no Farrar's, no hyperreflexia in the lower extremities. Imaging review: Cervical CT done at [facility], shows some mild degenerative disease but the limitations of CT do not allow me to assess any of the nerves with this test. Impression: 48-year-old female following up after a visit to the emergency room with right arm pain going down into her middle finger with weakness of her right hand. It this sounds like a C7 radiculopathy to me. Because of the hand weakness in the fact that she is right-hand dominant I am going to order an urgent MRI just to evaluate the possibility of an acute herniated disc on the nerve at C6-7. I did give her referral to physical therapy as an introductory move in the direction of conservative management, but with her hand weakness if there is any MRI finding she may need surgery. I will call her with the results of the MRI. Thank you for allowing us to care for your patient. The total time spent with this visit with this patient was 45 minutes reviewing history, physical exam, cervical imaging review, and implementation of treatment plan or further diagnostic testing Marv Mills MD,PhD [facility] Orders: Orders PT Evaluation and Treatment Today M54.12 - Radiculopathy, cervical region MR cervical spine wo con Today M54.12 - Radiculopathy, cervical region Coding Level of Care Code New Pt Level 4 (79971) Diagnoses Cervical radiculopathy M54.12
== END 2023-09-19 13:35 | disposition home or self-care (01) ==
PROVIDERS: PCP Internal Medicine; Visit Provider Physician Assistant
DX: M54.12 Radiculopathy, cervical region (principal)
CPT/HCPCS: 99204

== ENCOUNTER → 2023-09-19 13:06 | Outpatient (BNVA) | payer OTHER, SELFPAY | PROVIDERS: PCP Internal Medicine; Visit Provider Physician Assistant ==

== ENCOUNTER 2023-09-26 08:25 | Outpatient (REF) | payer OTHER, SELFPAY | END 2023-09-26 08:26 | disposition home or self-care (01) | LOC: HO.MRI 08:25 | PROVIDERS: PCP Internal Medicine; Visit Provider Physician Assistant | DX: Z13.89 Encounter for screening for other disorder (principal) ==

== ENCOUNTER 2024-05-03 12:57 | Emergency (ER) | payer BC, SELFPAY ==
[2024-05-03 13:38] VITALS: BP 142/69; PULSE 74; RESP 14; TEMP 36.8; O2SAT 100; BMI 27.4
--- NOTE | 2024-05-03 13:40 | ED_ITS ---
<Statement entered by Randy Zelaya MD - 05/09/24 23:47> Duplicate chart HPI - General Adult General Chief complaint: Urogenital-Female Stated complaint: Kidney Stone Source: patient Mode of arrival: ambulatory Limitations: no limitations History of Present Illness ED Provider: HPI narrative: Patient with history of kidney stone was seen here Related Data Home Medications ?Medication ?Instructions ?Recorded ?Confirmed albuterol sulfate 90 mcg/actuation 2 puff inhalation Q6H PRN 10/10/22 08/07/23 aerosol inhaler Shortness Of Breath Or Wheezing Previous Rx's ?Medication ?Instructions ?Recorded bisacodyl 10 mg rectal suppository 10 mg ID DAILY PRN constipation 03/10/23 (Dulcolax (bisacodyl)) #12 ea clotrimazole 1 % topical cream 1 appl topical BID #45 grams 08/07/23 (Antifungal (clotrimazole)) vitamin A palmitate 3,000 mcg 3,000 mcg PO DAILY 90 days #90 caps 09/06/23 (10,000 unit) capsule diclofenac sodium 1 % topical gel 2 g topical QID #100 grams 09/10/23 cefuroxime axetil 250 mg tablet 250 mg PO BID 7 days #14 tabs 05/04/24 Allergies Allergy/AdvReac Type Severity Reaction Status Date / Time No Known Allergies Allergy Verified 05/03/24 23:42 [facility] Past Medical History Medical History BMI 35.0-35.9,adult Asthma GERD (gastroesophageal reflux disease) Hypertension Morbid obesity Carpal tunnel syndrome Surgical History Hx of colonoscopy S/P laparoscopic sleeve gastrectomy Hx of carpal tunnel repair Hx of tubal ligation H/O eye surgery Family History Family History Father Hypertension FH: prostate cancer Mother Hypertension Breast cancer Raynaud disease Amputee, below knee Sister Hypertension Social History Social History Household Members: Family Housing: House Are you a primary mall plant caretaker to a significant other at home: No Do you presently have visiting nurse or other home services: No Alcohol intake: never Patient Tobacco Use Status: Never used Tobacco Smoked in Last 30 Days: No Use of substances other than those prescribed or required for medical reasons: No Advance Directives: No Advance Directives Information Provided: Yes Do you have a plan to hurt others: No Plan Patient : No service: No Physical Exam ED Vital Signs: BMI result Body Mass Index 27.4 Course Course Course Narrative: This is an RME: Additional HPI, ROS, PE not included below will be deferred to primary provider. RME assessment and note performed by: Luda Plummer PA-C This is a 15-[id number]-fwd-female, with a hx of asthma, GERD, HTN, who presents to the ER with complaints of urinary hesitancy, uregncy. Reports that she believes that the stone is at her urethral opening. She reports only urinating in small amounts. No flank pain, abdominal pain, nausea, vomiting. patient reports that she has a picture on her phone with what she thinks is a kidney stone trapped in her urethra, I did not see this photo deferred to primary provider. Plan: Labs, UA further ER eval needed Reevaluation(s) Reevaluation #1: See documentation by Dr. Zelaya who was the primary provider Medical Decision Making Lab Data 05/03/24 14:57 05/03/24 14:57 Labs: Lab Results 05/03/24 Range/Units 14:57 WBC 8.5 (4.8-10.8) X10*3/uL RBC 4.25 (4.20-5.50) X10*6/uL Hgb 11.3 L (12.0-16.0) g/dl Hct 35.5 L (37.0-47.0) % MCV 83.5 (80.0-98.0) fL MCH 26.6 L (27.0-33.0) pg MCHC 31.8 (31.0-35.0) g/dl RDW 14.2 (11.0-16.0) % Plt Count 348 (160-400) X10*3/uL MPV 9.3 L (9.4-12.3) fL Immature Gran % (Auto) 0.5 H (0.0-0.4) % Neut % (Auto) 72.6 (45-73) % Lymph % (Auto) 21.3 (20-40) % [facility] % (Auto) 3.9 (2-11) % Eos % (Auto) 1.2 (0-4) % Baso % (Auto) 0.5 (0-2) % Lymph # (Auto) 1.8 (1.2-4.9) X10*3/uL [facility] # (Auto) 0.3 (0.1-1.2) X10*3/uL Eos # (Auto) 0.1 (0.0-0.4) X10*3/uL Baso # (Auto) 0.0 (0.0-0.2) X10*3/uL Abs Immat Gran (auto) 0.04 H (0.00-0.03) X10*3/uL Absolute Neuts (auto) 6.2 (2.0-8.3) x10*3/uL Absolute Nucleated RBC 0.000 (0.0-0.012) X10*3/uL Nucleated RBC % (auto) 0.0 (0.0-0.2) /100WBC Sodium 141 (135-145) mmol/L Potassium 4.2 (3.3-5.1) mmol/L Chloride 106 (96-108) mmol/L Carbon Dioxide 28 (22-29) mmol/L Anion Gap 11 L (12-20) BUN 12 (9-16) mg/dL Creatinine 0.74 (0.5-1.4) mg/dL Estim Creat Clear Calc 85.4 Estimated GFR > 60 Random Glucose 147 H (60-115) mg/dL Calcium 9.3 (8.4-10.2) mg/dL Total Bilirubin 0.2 (0.0-1.0) mg/dL Direct Bilirubin < 0.2 (0.0-0.5) mg/dL AST 15 (5-31) U/L ALT 15 (0-31) U/L Alkaline Phosphatase 76 (39-117) U/L Total Protein 7.3 (6.5-8.0) g/dL Albumin 3.9 (3.5-5.0) g/dL Lipase 24 (8-78) U/L Discharge Plan Discharge Clinical Impression: Kidney stone Patient Disposition: Left W/O Completing Treatment Prescriptions: No Action vitamin A palmitate 3,000 mcg (10,000 unit) capsule 3,000 mcg PO DAILY 90 Days Qty: 90 0RF diclofenac sodium 1 % gel 2 g topical QID Qty: 100 0RF Rx Instructions: Apply to affected area cefuroxime axetil 250 mg tablet 250 mg PO BID 7 Days Qty: 14 0RF albuterol sulfate 90 mcg/actuation HFA aerosol inhaler 2 puff inhalation Q6H PRN (Reason: Shortness Of Breath Or Wheezing) clotrimazole [Antifungal (clotrimazole)] 1 % cream 1 appl topical BID Qty: 45 2RF bisacodyl [Dulcolax (bisacodyl)] 10 mg suppository 10 mg ID DAILY PRN (Reason: constipation) Qty: 12 0RF Discharge Date/Time: 05/03/24 20:48
[2024-05-03 15:04] LABS: Basophils Percent Auto 0.5 % (0-2); Eosinophils Absolute Auto 0.1 X10*3/uL (0.0-0.4); Eosinophils Percent Auto 1.2 % (0-4); Hematocrit 35.5 % (37.0-47.0); Hemoglobin 11.3 g/dl (12.0-16.0); Imm Gran Abs Auto 0.04 X10*3/uL (0.00-0.03); Imm Gran Pct Auto 0.5 % (0.0-0.4); Lymphocytes Absolute Auto 1.8 X10*3/uL (1.2-4.9); Lymphocytes Percent Auto 21.3 % (20-40); MANUAL DIFF FLAG NO; Mean Corpuscular HGB Conc 31.8 g/dl (31.0-35.0); Mean Corpuscular Hemoglobin 26.6 pg (27.0-33.0); Mean Corpuscular Volume 83.5 fL (80.0-98.0); Mean Platelet Volume 9.3 fL (9.4-12.3); Monocytes Absolute Auto 0.3 X10*3/uL (0.1-1.2); Monocytes Percent Auto 3.9 % (2-11); Neutrophils Absolute Auto 6.2 x10*3/uL (2.0-8.3); Neutrophils Percent Auto 72.6 % (45-73); Platelet Count 348 X10*3/uL (160-400); Red Blood Count 4.25 X10*6/uL (4.20-5.50); Red Cell Distribution Width 14.2 % (11.0-16.0); White Blood Count 8.5 X10*3/uL (4.8-10.8)
[2024-05-03 15:19] LABS: Alanine Aminotransferase 15 U/L (0-31); Albumin Level 3.9 g/dL (3.5-5.0); Alkaline Phosphatase 76 U/L (39-117); Anion Gap 11 (12-20); Aspartate Amino Transferase 15 U/L (5-31); Bilirubin Direct < 0.2 mg/dL (0.0-0.5); Bilirubin Total 0.2 mg/dL (0.0-1.0); Blood Urea Nitrogen 12 mg/dL (9-16); Calcium 9.3 mg/dL (8.4-10.2); Carbon Dioxide 28 mmol/L (22-29); Chloride 106 mmol/L (96-108); Creatinine Clr Calc Pharmacy 85.4; Estimated Glomerular Filt Rate > 60; Glucose Random 147 mg/dL (60-115); Lipase 24 U/L (8-78); Potassium 4.2 mmol/L (3.3-5.1); Sodium 141 mmol/L (135-145); Total Protein 7.3 g/dL (6.5-8.0)
== END 2024-05-03 20:48 | disposition left against medical advice (07) ==
PROVIDERS: Physician Assistant Medical; Emergency Provider Emergency Medicine; PCP Internal Medicine
DX: N20.0 Calculus of kidney (principal); N39.41 Urge incontinence; R33.9 Retention of urine, unspecified; Z79.899 Other long term (current) drug therapy
CPT/HCPCS: 36415; 51798; 80048; 80076; 83690; 85025; 99281; 99283

== ENCOUNTER 2024-05-03 23:15 | Emergency (ER) | payer BC, SELFPAY ==
[2024-05-03 23:37] VITALS: BP 130/61; PULSE 63; RESP 18; TEMP 36.6; O2SAT 100; BMI 28.3
--- NOTE | 2024-05-04 02:30 | ED.FEMALEGU ---
HPI - Female Genitourinary General Chief complaint: Urogenital-Female Stated complaint: kidney stones Time Seen by Provider: 05/04/24 02:30 Source: patient Mode of arrival: ambulatory Limitations: no limitations History of Present Illness ED Provider: HPI Narrative: Patient's history of kidney stone been having pain in the left flank area radiating to the lower abdomen for last 2 days noticed stone stuck at the opening of the urethra able to urinate but unable to urinate completely Related Data Home Medications ?Medication ?Instructions ?Recorded ?Confirmed albuterol sulfate 90 mcg/actuation 2 puff inhalation Q6H PRN 10/10/22 08/07/23 aerosol inhaler Shortness Of Breath Or Wheezing Previous Rx's ?Medication ?Instructions ?Recorded bisacodyl 10 mg rectal suppository [address] DAILY PRN constipation 03/10/23 (Dulcolax (bisacodyl)) #12 ea clotrimazole 1 % topical cream 1 appl topical BID #45 grams 08/07/23 (Antifungal (clotrimazole)) vitamin A palmitate 3,000 mcg 3,000 mcg PO DAILY 90 days #90 caps 09/06/23 (10,000 unit) capsule diclofenac sodium 1 % topical gel 2 g topical QID #100 grams 09/10/23 cefuroxime axetil 250 mg tablet 250 mg PO BID 7 days #14 tabs 05/04/24 Allergies Allergy/AdvReac Type Severity Reaction Status Date / Time No Known Allergies Allergy Verified 05/03/24 23:42 Review of Systems Review of Systems: Yes all other systems are reviewed and are negative PMFSH Past Medical History Medical History BMI 35.0-35.9,adult Asthma GERD (gastroesophageal reflux disease) Hypertension Morbid obesity Carpal tunnel syndrome Surgical History Hx of colonoscopy S/P laparoscopic sleeve gastrectomy Hx of carpal tunnel repair Hx of tubal ligation H/O eye surgery Family History Family History Father Hypertension FH: prostate cancer Mother Hypertension Breast cancer Raynaud disease Amputee, below knee Sister Hypertension Social History Social History Household Members: Family Housing: House Are you a primary field care coordinator to a significant other at home: No Do you presently have visiting nurse or other home services: No Alcohol intake: never Patient Tobacco Use Status: Never used Tobacco Smoked in Last 30 Days: No Use of substances other than those prescribed or required for medical reasons: No Advance Directives: No Advance Directives Information Provided: Yes Do you have a plan to hurt others: No Plan Patient : No service: No Physical Exam Vital Signs: Vital Signs: Last Vital Signs Temp 97.8 F 05/04/24 04:24 Pulse 72 05/04/24 04:24 Resp 18 05/04/24 04:24 BP 122/55 L 05/04/24 04:24 Pulse Ox 98 05/04/24 04:24 O2 Del Method Room Air 05/04/24 04:24 BMI result Body Mass Index 28.3 Appearance: Alert. Oriented X3. No acute distress. ENT: Pharynx normal. Oral Mucosa moist Neck: Normal inspection. Neck supple. CVS: Normal heart rate and rhythm. Pulses normal. Respiratory: No respiratory distress. Equal air entry bilateral, no wheezing/rales/rhonchi Skin: Skin warm and dry. Normal skin color. Normal skin turgor. about 1 cm size stone stuck at the open which was removed easily patient is able to urinate normal after the Neuro: Oriented X 3. Medications Administered Discontinued Medications Generic Name Dose Route Start Last Admin Trade Name Freq PRN Reason Stop Dose Admin Lidocaine HCl 10 ml 05/04/24 03:31 05/04/24 04:03 Lidocaine Hcl 2 % Urojet 10 Ml Jel.Pf.Candy TOPICAL 05/04/24 03:32 10 ml ONCE ONE Administration Medical Decision Making Medical Decision Making MDM Narrative: Patient with large urethral stones at the opening of the urethra , removed after using Uro jet intact stone was removed about .2 cm x 0.5 cm Lab Data MDM Lab Attestation statement: I reviewed the patient's lab results. Labs: Lab Results 05/04/24 Range/Units 04:06 Urine Color Yellow Urine Appearance Clear Urine pH 6.0 (5.0-9.0) Ur Specific [place] 1.025 (1.005-1.025) Urine Protein Negative (Neg-Trace) mg/dL Urine Glucose (UA) Negative (Negative) mg/dL Urine Ketones Negative (Negative) mg/dL Urine Blood Small (1+) H (Negative) Urine Nitrite Negative (Negative) Ur Leukocyte Esterase Moderate (2+) H (Negative) Urine RBC 11-20 H (0-2) /HPF Urine WBC 21-50 H (0-5) /HPF Ur Squamous Epith Cells 0-2 (0-2) /HPF Urine Bacteria None Seen (None Seen) Hyaline Casts 0-2 (0-2) /LPF Discharge Plan Discharge Clinical Impression: Kidney stone Patient Disposition: Home, Self-Care Instructions: Kidney Stones (ED) Additional Instructions: Drink plenty of fluids Follow up with urologist if pain continues Prescriptions: New cefuroxime axetil 250 mg tablet 250 mg PO BID 7 Days Qty: 14 0RF No Action vitamin A palmitate 3,000 mcg (10,000 unit) capsule 3,000 mcg PO DAILY 90 Days Qty: 90 0RF diclofenac sodium 1 % gel 2 g topical QID Qty: 100 0RF Rx Instructions: Apply to affected area albuterol sulfate 90 mcg/actuation HFA aerosol inhaler 2 puff inhalation Q6H PRN (Reason: Shortness Of Breath Or Wheezing) clotrimazole [Antifungal (clotrimazole)] 1 % cream 1 appl topical BID Qty: 45 2RF bisacodyl [Dulcolax (bisacodyl)] 10 mg suppository [address] DAILY PRN (Reason: constipation) Qty: 12 0RF Interventions: ED Discharge Assessment Last Done: 05/04/24 04:24 Discharge Date/Time: 05/04/24 04:25 Print Language: [place]
[2024-05-04] MEDS: Lidocaine HCl 2 % Urojet 10 ML JEL.PF.APP TOPICAL (04:03)
[2024-05-04 04:11] VITALS: BP 122/55; PULSE 72; RESP 18; TEMP 36.6; O2SAT 98
--- NOTE | 2024-05-04 04:14 | PC.NURSE ---
this rn assumed care of pt @ 0315. rn at bedside with md during stone removal. urine sample obtained and sent to lab. family member at bedside. pt ambulatory at discharge
[2024-05-04 04:24] VITALS: BP 122/55; PULSE 72; RESP 18; TEMP 36.6; O2SAT 98
[2024-05-04 04:26] LABS: Appearance Urine Clear; Color Urine Yellow; Glucose Urine UA Negative (Negative); Leukocyte Esterase Urine Moderate (2+) (Negative); Nitrite Urine Negative (Negative); Specific Gravity - Urine 1.025 (1.005-1.025); UMIC TRIGGER UACC YES; Urine Blood Small (1+) (Negative); Urine Ketones Negative (Negative); Urine Protein Negative (Neg-Trace)
[2024-05-04 04:29] LABS: Bacteria Urine None Seen (None Seen); Hyaline Casts Urine 0-2 /LPF (0-2); Squamous Epithelial Cell Urine 0-2 /HPF (0-2); UACC Culture Trigger YES; WBC Urine 21-50 /HPF (0-5)
== END 2024-05-04 04:25 | disposition home or self-care (01) ==
PROVIDERS: Emergency Provider Internal Medicine
DX: N20.0 Calculus of kidney (principal); I10 Essential (primary) hypertension; J45.909 Unspecified asthma, uncomplicated; Z87.442 Personal history of urinary calculi
CPT/HCPCS: 81001; 87086; 99284